=== PATIENT | male | born 1940 | race Caucasian/White ===

== ENCOUNTER 2016-11-30 09:52 | Day surgery (SDC) | payer MEDICARE, OTHER ==
[2016-11-30] MEDS ORDERED: CYCLOPENTOLATE 1% OPHTH DROPS 2 ML OPTH ONE (10:09)
[2016-11-30] MEDS ORDERED: LACTATED RINGERS 500 ML IV ONE (10:09)
[2016-11-30] MEDS ORDERED: TROPICAMIDE 1% OPHTH 2 ML DROPS OPTH ONE (10:09)
[2016-11-30] MEDS ORDERED: KETOROLAC 0.45% OPHTH DROPS OPTH ONE (10:09)
[2016-11-30] MEDS ORDERED: MIDAZOLAM 2 MG/2 ML VIAL IVP ONE (10:30)
[2016-11-30] MEDS ORDERED: LIDOCAINE-MPF 2% 5 ML VIAL IM ONE (10:30)
[2016-11-30] MEDS ORDERED: PROPARACAINE 0.5% OPHTH DROPS 15 ML OPTH ONE (10:42)
[2016-11-30] MEDS ORDERED: BRIMONIDINE 0.2% OPHTH DROPS 5 ML OPTH ONE (10:42)
[2016-11-30] MEDS ORDERED: CHONDR SULF/HYALURONATE SYRINGE IO ONE (10:42)
[2016-11-30] MEDS ORDERED: EPINEPHrine 1 MG/ML AMP IO ONE (10:42)
[2016-11-30] MEDS ORDERED: levoFLOXacin 0.5% OPHTH DROPS 5 ML OPTH ONE (10:42)
[2016-11-30] MEDS ORDERED: BSS/LIDOCAINE/EPINEPHRINE 1 ML SYRINGE IO ONE (10:42)
[2016-11-30] MEDS ORDERED: TETRACAINE 0.5% OPHTH DROPS 4 ML OPTH ONE (10:42)
== END 2016-11-30 09:53 | disposition home or self-care (01) ==
PROC: 08RK3JZ Replacement of Left Lens with Synthetic Substitute, Percutaneous Approach (ICD-10-PCS; principal; 2016-11-30 10:45)
DX: H25.12 Age-related nuclear cataract, left eye (principal); Z87.891 Personal history of nicotine dependence; I10 Essential (primary) hypertension; H40.9 Unspecified glaucoma
CPT/HCPCS: 66982; V2632; V2787

== ENCOUNTER 2016-12-14 08:17 | Day surgery (SDC) | payer MEDICARE, OTHER ==
[2016-12-14] MEDS ORDERED: LACTATED RINGERS 500 ML IV ONE (08:39)
[2016-12-14] MEDS ORDERED: KETOROLAC 0.45% OPHTH DROPS OPTH ONE (08:40)
[2016-12-14] MEDS ORDERED: TROPICAMIDE 1% OPHTH 2 ML DROPS OPTH ONE (08:40)
[2016-12-14] MEDS ORDERED: CYCLOPENTOLATE 1% OPHTH DROPS 2 ML OPTH ONE (08:40)
[2016-12-14] MEDS ORDERED: LIDOCAINE-MPF 2% 5 ML VIAL IM ONE (10:15)
[2016-12-14] MEDS ORDERED: PROPOFOL 200 MG/20 ML VIAL IVP ONE (10:15)
[2016-12-14] MEDS ORDERED: MIDAZOLAM 2 MG/2 ML VIAL IVP ONE (10:15)
[2016-12-14] MEDS ORDERED: EPINEPHrine 1 MG/ML AMP IO ONE (10:16)
[2016-12-14] MEDS ORDERED: PROPARACAINE 0.5% OPHTH DROPS 15 ML OPTH ONE (10:16)
[2016-12-14] MEDS ORDERED: BRIMONIDINE 0.2% OPHTH DROPS 5 ML OPTH ONE (10:16)
[2016-12-14] MEDS ORDERED: TETRACAINE 0.5% OPHTH DROPS 4 ML OPTH ONE (10:17)
[2016-12-14] MEDS ORDERED: CHONDR SULF/HYALURONATE SYRINGE IO ONE (10:17)
[2016-12-14] MEDS ORDERED: BSS/LIDOCAINE/EPINEPHRINE 1 ML SYRINGE IO ONE (10:17)
== END 2016-12-14 08:18 | disposition home or self-care (01) ==
PROC: 08RJ3JZ Replacement of Right Lens with Synthetic Substitute, Percutaneous Approach (ICD-10-PCS; principal; 2016-12-14 09:15)
DX: H25.11 Age-related nuclear cataract, right eye (principal); I10 Essential (primary) hypertension; Z87.891 Personal history of nicotine dependence
CPT/HCPCS: 66984; V2632; V2787

== ENCOUNTER 2017-01-05 20:19 | Outpatient (CLI) | payer MEDICARE, OTHER | END 2017-01-05 20:20 | disposition home or self-care (01) | DX: J20.9 Acute bronchitis, unspecified (principal); R06.2 Wheezing ==

== ENCOUNTER 2017-01-05 23:37 | Emergency (ER) | payer MEDICARE, OTHER ==
[2017-01-06] MEDS ORDERED: SODIUM CHLORIDE 0.9% 500 ML IV ONE (00:31)
[2017-01-06] MEDS ORDERED: SODIUM CHLORIDE 0.9% 1,000 ML IV ONE (00:31)
== END 2017-01-06 01:53 | disposition home or self-care (01) ==
DX: J18.9 Pneumonia, unspecified organism (principal); E87.1 Hypo-osmolality and hyponatremia; I10 Essential (primary) hypertension; Z79.82 Long term (current) use of aspirin; Z87.891 Personal history of nicotine dependence

== ENCOUNTER 2017-05-28 17:13 | Emergency (ER) | payer MEDICARE, OTHER ==
--- NOTE | 2017-05-28 18:10 | XRAY Preliminary Report ---
Exam: XR Chest 2 View PA/LAT IMPRESSION: Cardiomegaly. Clear lungs. [facility] SITE ID: [id number]
--- NOTE | 2017-05-28 18:13 | XRAY Report ---
EXAM: CHEST RADIOGRAPHY EXAM DATE: 05/28/2017 05:59 PM. CLINICAL HISTORY: Productive cough, r/o pneumonia. COMPARISON: 01/05/2017. TECHNIQUE: 2 views. FINDINGS: Lungs/Pleura: No focal opacities evident. No pleural effusion. No pneumothorax. Normal volumes. Mediastinum: There is cardiomegaly. No edema or pneumothorax. Other: None. IMPRESSION: Cardiomegaly. Clear lungs. [facility] Referring Provider Line: [phone] SITE ID: [id number]
--- NOTE | 2017-05-28 18:14 | ED Physician Documentation ---
PD HPI URI - Stated complaint Stated Complaint: COUGH/PHLEGM/SOA - Chief complaint Chief Complaint: Resp - History obtained from History obtained from: Patient - History of Present Illness Timing - onset: How many days ago (several) Timing duration: Days Timing details: Abrupt onset, Still present Associated symptoms: Fever, Chills, Productive cough, Dyspnea. No: Sore throat , Hemoptysis, NVD, Bilateral edema Contributing factors: No: Sick contact, Travel, Immunocompromised Improves by: Rest Worsened by: Activity Similar symptoms before: Diagnosis (pneumonia in recent past (few months ago) and had some mild cough persist awhile.) Review of Systems Constitutional: reports: Fever, Chills, Myalgias, Fatigue Nose: reports: Congestion Throat: denies: Sore throat Cardiac: denies: Chest pain / pressure, Palpitations Respiratory: reports: Dyspnea, Cough. denies: Wheezing GI: denies: Nausea, Vomiting, Diarrhea Musculoskeletal: denies: Extremity swelling PD PAST MEDICAL HISTORY - Past Medical History Cardiovascular: Hypertension, Other Respiratory: None Neuro: None Endocrine/Autoimmune: None GI: Hemorrhoids : None HEENT: Glaucoma Psych: None Musculoskeletal: None Derm: None - Past Surgical History Past Surgical History: Yes General: Cholecystectomy HEENT: Tonsil/Adenoidectomy - Present Medications Home Medications: Ambulatory Orders Medication Instructions Recorded Confirmed Lisinopril/Hydrochlorothiazide 5 mg PO DAILY 05/21/13 05/28/17 [Lisinopril-Hctz 10-12.5 mg Tab] Aspirin 81 mg PO DAILY PM 10/29/13 05/28/17 Latanoprost 0.005% Ophth Drops 1 drop EACHEYE DAILY PM 07/25/16 05/28/17 [Xalatan Ophth Drops] Timolol [Betimol] 1 drop EACHEYE BID 07/25/16 05/28/17 Albuterol Sulf [Ventolin Hfa 1 - 2 puffs INH Q4HR PRN #1 inhaler 05/28/17 Inhaler] Benzonatate [Tessalon] 100 mg PO TID PRN #25 capsule 05/28/17 Dexamethasone [Decadron] 4 mg PO DAILY #5 tablet 05/28/17 Doxycycline Hyclate 100 mg PO BID #14 tablet 05/28/17 - Allergies Allergies/Adverse Reactions: Allergies Allergy/AdvReac Type Severity Reaction Status Date / Time cephalexin monohydrate * Allergy Intermediate Rash Verified 05/21/13 23:11 [From Keflex] levofloxacin [From Levaquin] Allergy Intermediate Rash Verified 05/21/13 23:11 - Social History Does the pt smoke?: No Smoking Status: Former smoker Does the pt drink ETOH?: No Does the pt have substance abuse?: No - Immunizations Immunizations are current?: Yes - POLST Patient has POLST: No PD ED PE NORMAL - Vitals Vital signs reviewed: Yes - General General: Alert and oriented X 3, No acute distress, Well developed/nourished - HEENT HEENT: PERRL, Ears normal, Moist mucous membranes, Pharynx benign - Neck Neck: Supple, no meningeal sign, No adenopathy - Cardiac Cardiac: RRR, No murmur - Respiratory Respiratory: No: Clear bilaterally (scattered wheezing and decreased sounds on the right. ) - Abdomen Abdomen: Soft, Non tender - Derm Derm: Normal color, Warm and dry - Extremities Extremities: Normal ROM s pain, No edema, No calf tenderness / cord - Neuro Neuro: Alert and oriented X 3, No motor deficit, Normal speech Results - Vitals Vitals: Oxygen O2 Source Room air - Rads (name of study) chest Radiology: Prelim report reviewed, EMP read contemporaneously (no infiltrates nor acute process) PD MEDICAL DECISION MAKING - ED course Complexity details: considered differential (seems bronchial, but with duration of symptoms, will treat as potential bacterial as well. ), d/w patient Departure - Departure Disposition: 01 Home, Self Care Clinical Impression: Upper respiratory infection Qualifiers: URI type: unspecified URI Qualified Code(s): J06.9 - Acute upper respiratory infection, unspecified Condition: Stable Record reviewed to determine appropriate education?: Yes Instructions: ED Upper Resp Infec Abx Tx Follow-Up: Misael Barth MD [Primary Care Provider] - Prescriptions: Albuterol Sulf [Ventolin Hfa Inhaler] 1 - 2 puffs INH Q4HR PRN #1 inhaler PRN Reason: Shortness Of Air/Wheezing Dexamethasone [Decadron] 4 mg PO DAILY #5 tablet Doxycycline Hyclate 100 mg PO BID #14 tablet Benzonatate [Tessalon] 100 mg PO TID PRN #25 capsule PRN Reason: Cough Comments: Drink lots of fluids and regular medications. Use the albuterol inhaler 2 puffs 4 times a day and added times every 2 hours if needed for wheezing and cough. Tessalon medication as needed for cough. Decadron daily for 5 more days for the inflammation of the bronchioles. This may be viral but cannot say it is not bacterial and so we will treat with antibiotic doxycycline twice a day for a week. Recheck if not improving over the next few days and return sooner if worse. Discharge Date/Time: 05/28/17 19:34
[2017-05-28] MEDS ORDERED: ALBUTEROL NEB 2.5 MG/3 ML INH STA (18:27)
[2017-05-28] MEDS ORDERED: BENZONATATE 100 MG CAPSULE PO STA (18:28)
[2017-05-28] MEDS ORDERED: DEXAMETHASONE 10 MG/ML VIAL PO STA (18:28)
[2017-05-28] MEDS ORDERED: DOXYCYCLINE 100 MG TABLET PO STA (18:28)
[2017-05-28] MEDS ORDERED: ALBUTEROL NEB 2.5 MG/3 ML INH ONE (19:03)
[2017-05-28] MEDS ORDERED: DOXYCYCLINE 100 MG TABLET PO ONE (19:19)
[2017-05-28] MEDS ORDERED: DEXAMETHASONE 10 MG/ML VIAL ONE (19:19)
[2017-05-28] MEDS ORDERED: BENZONATATE 100 MG CAPSULE PO ONE (19:19)
[2017-05-28] MEDS ORDERED: CHERRY SYRUP 10 ML UDC PO ONE (19:20)
[2017-05-28 19:28] VITALS: BP 178/91
== END 2017-05-28 19:34 | disposition home or self-care (01) ==
LOC: ED 17:13
DX: J06.9 Acute upper respiratory infection, unspecified (principal); I10 Essential (primary) hypertension; Z87.891 Personal history of nicotine dependence; Z79.82 Long term (current) use of aspirin
CPT/HCPCS: 71020; 94640; 99283; A9270; J7613

== ENCOUNTER 2017-06-07 10:58 | Outpatient (CLI) | payer MEDICARE, OTHER ==
[2017-06-07 17:33] LABS: BASOPHILS % (AUTO) 0.8 %; EOSINOPHILS # (AUTO) 0.2 10^3/uL (0.0-0.7); EOSINOPHILS % (AUTO) 3.1 %; HCT - HEMATOCRIT 42.9 % (42.0-52.0); HGB - HEMOGLOBIN 14.5 g/dL (14.0-18.0); LYMPHOCYTES # (AUTO) 1.7 10^3/uL (1.5-3.5); MEAN CORPUSCULAR HEMOGLOBIN 30.2 pg (27.0-31.0); MEAN CORPUSCULAR HGB CONC 33.8 g/dL (32.0-36.0); MEAN CORPUSCULAR VOLUME 89.3 fL (80.0-94.0); MEAN PLATELET VOLUME 7.2 fL (7.4-11.4); MONOCYTES # (AUTO) 0.5 10^3/uL (0.0-1.0); MONOCYTES % (AUTO) 9.2 %; NEUTROPHILS # (AUTO) 3.5 10^3/uL (1.5-6.6); NEUTROPHILS % (AUTO) 58.9 %; RED CELL DISTRIBUTION WIDTH 13.9 % (12.0-15.0)
[2017-06-07 17:57] LABS: ALBUMIN/GLOBULIN RATIO 1.6 (1.0-2.2); BUN - BLOOD UREA NITROGEN 11 mg/dL (6-20); CARBON DIOXIDE - CO2 29 mmol/L (21-32); CHLORIDE 96 mmol/L (101-111); CHOL/HDL RATIO 2.3 (<5.0); CHOLESTEROL 147 mg/dL; CREATININE 0.8 mg/dL (0.6-1.2); GFR - MDRD 94 (>89); GLUCOSE 98 mg/dL (70-100); HDL CHOLESTEROL 63 mg/dL; POTASSIUM 4.2 mmol/L (3.5-5.0); SODIUM 131 mmol/L (135-145); TOTAL PROTEIN 6.3 g/dL (6.7-8.2); TRIGLYCERIDES 31 mg/dL
[2017-06-07 18:16] LABS: LDL CHOLESTEROL,DIRECT 70 mg/dL
[2017-06-07 18:27] LABS: PLATELET ESTIMATE, MANUAL NORMAL (130-450,000) (NORMAL); PLATELET MORPHOLOGY NORMAL APPEARANCE (NORMAL)
== END 2017-06-07 10:59 | disposition home or self-care (01) ==
LOC: LAB.F 10:58
PROVIDERS: ATTEND Physician Assistant
DX: I10 Essential (primary) hypertension (principal); R53.83 Other fatigue
CPT/HCPCS: 36415; 80053; 80061; 83880; 85025

== ENCOUNTER 2017-06-09 13:49 | Outpatient (CLI) | payer MEDICARE, OTHER | END 2017-06-09 13:50 | disposition home or self-care (01) | LOC: DI 13:49 | PROVIDERS: ATTEND Physician Assistant | DX: I11.0 Hypertensive heart disease with heart failure (principal); I50.9 Heart failure, unspecified; I34.0 Nonrheumatic mitral (valve) insufficiency; I35.1 Nonrheumatic aortic (valve) insufficiency; I07.1 Rheumatic tricuspid insufficiency | CPT/HCPCS: 93306 ==

== ENCOUNTER 2017-08-29 15:54 | Outpatient (CLI) | payer MEDICARE, OTHER | END 2017-08-29 15:55 | disposition home or self-care (01) | LOC: RT 15:54 | PROVIDERS: ATTEND Nurse Anesthetist, Certified Registered | DX: Z01.810 Encounter for preprocedural cardiovascular examination (principal) | CPT/HCPCS: 93005 ==

== ENCOUNTER 2017-09-05 09:34 | Day surgery (SDC) | payer MEDICARE, OTHER ==
[2017-09-05] MEDS ORDERED: LACTATED RINGERS 1,000 ML IV ONE ×2 (09:46→14:40)
[2017-09-05] MEDS ORDERED: ceFAZolin 2 GM/50 ML 2 GM/50 ML BAG IV ONE (09:46)
[2017-09-05] MEDS ORDERED: BUPIVACAINE 0.5% PF 30 ML VIAL INFIL ONE ×3 (11:13→12:26)
[2017-09-05] MEDS ORDERED: ONDANSETRON 4 MG/2 ML VIAL IVP ONE (11:45)
[2017-09-05] MEDS ORDERED: PROPOFOL 200 MG/20 ML VIAL IVP ONE (11:45)
[2017-09-05] MEDS ORDERED: LIDOCAINE-MPF 2% 5 ML VIAL IM ONE (11:45)
[2017-09-05] MEDS ORDERED: DEXAMETHASONE 4 MG/ML VIAL IVP ONE (11:45)
[2017-09-05] MEDS ORDERED: GLYCOPYRROLATE 1 MG/5 ML VIAL IVP ONE (11:45)
[2017-09-05] MEDS ORDERED: fentaNYL 100 MCG/2 ML VIAL IVP ONE (11:45)
--- NOTE | 2017-09-05 12:53 | OPERATIVE REPORT ---
Operative Report - General Procedure Date: 09/05/17 Planned Procedure: LEFT inguinal hernia Pre-Op Diagnosis: LEFT inguinal hernia Procedure Performed: LEFt indirect inguinal herniorrhaphy with mesh Post Op Diagnosis: LEFT indirect inguinal herniorrhaphy with slight weakness of the floor - Procedure Note Primary Surgeon: Rasta Lopez MD Anesthesia Provider: Neymar Ventura and Rasta Lisa MD Anesthesia Technique: General LMA, Local (30 mL 1/2% marcaine) IV Fluids (mL): 400 Estimated Blood Loss (mL): 5 Complications: None. - Other Other Information/Narrative: OPERATIVE DESCRIPTION/REPORT: After verbal and written informed consent was obtained detailing the risks of infection, bleeding requiring transfusion with its risks, nerve injury, and , and after I met with the patient confirming the surgery and the site of the surgery and after initialing the site of the surgery with a surgical marker , the patient was brought to the operative suite and placed supine on the operating table. Great care was taken to avoid pressure points to prevent pressure necrosis or nerve injury. Monitoring devices were applied along with TEDs and pneumatic compressive stockings (to prevent DVT). The patient received preoperative antibiotics for surgical prophylaxis. Neymar Ventura initially sedated and anesthetized the patient and then Dr. Rasta Lisa was present for the remaining procedure. The patient was prepped and draped in the usual sterile manner. With the patient draped my initials were clearly visible. A "time in" then confirmed that the patient was identified with 3 identifiers ( name, date and medical record number), the history and physical was in the chart, the signed consent confirming the procedure was in the chart, the patient was in the correct position, the aforementioned prophylactic measures were in place or given, we had the correct personnel and equipment to complete the procedure and that anesthesia, surgery and nursing were given an opportunity to express any concerns. With the agreement of everyone in the room , we proceeded with the operation. A standard inguinal incision was made and dissection was carried down to the external oblique aponeurosis using a combination of Metzenbaum scissors and Bovie electrocautery. The external oblique aponeurosis was cleared of overlying adherent tissue, and the external ring was delineated. The external oblique was the incised with a scalpel and this incision was carried out to the external ring using Metzenbaum scissors. Having exposed the inguinal canal, the cord structures were from the canal using blunt dissection, and a Mirta drain was placed around the cord structures at the level of the pubic tubercle. This Benton drain was then used to retract the cord structures as needed. Adherent cremasteric muscle was dissected free from the cord using Bovie electrocautery. The cord was then explored using a combination of sharp and blunt dissection , and the sac was found anteromedially to the cord structures. The sac was dissected free from the cord structures using a combination of blunt dissection and Bovie electrocautery. Once preperitoneal fat was encountered, the dissection stopped and the sac was high ligated with a 2-0 PDS, transected, the stump cauterized and allowed to retract back into the abdominal cavity and a large Bard Perfix plug (Ref# [id number], Lot# [id number], use date 2022-03-05) inserted into the internal ring. The plug was secured to the internal ring by interrupted 2-0 PDS sutures. The floor was relatively weak. The Bard Perfix enlay patch was then placed on the floor of the inguinal canal and secured in place using interrupted 0 PDS sutures to the conjoined tendon superiorly, pubic tubercle medially, and shelving edge inferiorly. By reinforcing the floor with the enlay patch, a new internal ring was thus formed. The Benton drain was removed. The wound was then irrigated using sterile saline, and hemostasis was obtained using Bovie electrocautery. The incision in the external oblique was approximated using a 3-0 Vicryl in a running fashion , thus reforming the external ring. The fascia and skin was then injected with the 1/2% marcaine for shelter pain control. The skin incision was approximated with 4-0 Monocryl in a subcuticular fashion. The skin was prepped with benzoin and steristrips were applied. At this point a time out was performed that confirmed that all the counts were correct, the procedure that was performed, the blood loss, the IV fluids administered, and the patients condition. A dressing was then applied. Gentle downward traction ensured that the testes were well seated in the scrotum. Having tolerated the procedure well , the patient was taken to short stay in good and stable condition.
[2017-09-05] MEDS ORDERED: fentaNYL 100 MCG/2 ML VIAL ONE (12:57)
[2017-09-05] MEDS ORDERED: HYDROmorphone 1 MG/ML SYRINGE ONE (13:27)
[2017-09-05] MEDS ORDERED: HYDROcod/ACETAM 5/325 MG TABLET ONE (14:32)
[2017-09-05 17:38] VITALS: BP 128/72
== END 2017-09-05 09:35 | disposition home or self-care (01) ==
LOC: SDS 09:34
PROVIDERS: ATTEND Surgery
PROC: 0YU60JZ Supplement Left Inguinal Region with Synthetic Substitute, Open Approach (ICD-10-PCS; principal; 2017-09-05 10:30)
DX: K40.90 Unilateral inguinal hernia, without obstruction or gangrene, not specified as recurrent (principal); I10 Essential (primary) hypertension
CPT/HCPCS: 49505; A9270; C1781; J0690; J1170; J7120

== ENCOUNTER 2018-05-03 15:40 | Outpatient (CLI) | payer MEDICARE, OTHER ==
--- NOTE | 2018-05-04 16:19 | XRAY Report ---
Procedure Date: 05/03/2018 Accession Number: [id number] / [id number] Procedure: XR - Chest 2 View X-Ray CPT Code: 63424 FULL RESULT: EXAM: Chest 2 View X-Ray DATE: 05/03/2018 4:03 PM CLINICAL HISTORY: WIN,OTHER FORMS OF DYSPNEA COMPARISON: 09/08/2017. TECHNIQUE: 2 views. FINDINGS: Lungs/Pleura: No focal opacities evident. No pneumothorax or pleural effusion. Normal volumes. Mediastinum: There is enlargement of the cardiac silhouette. Comparison is difficult due to the prior radiograph being and AP technique, however this is likely relatively stable. Other: None. IMPRESSION: Stable cardiomegaly without acute cardiopulmonary findings. Correlate to a history of heart failure. [facility]
== END 2018-05-03 15:41 | disposition home or self-care (01) ==
LOC: DI 15:40
PROVIDERS: ATTEND Internal Medicine
DX: R06.00 Dyspnea, unspecified (principal); R06.09 Other forms of dyspnea
CPT/HCPCS: 71046

== ENCOUNTER 2018-05-20 14:06 | Outpatient (CLI) | payer MEDICARE, OTHER | END 2018-05-20 14:07 | disposition home or self-care (01) | LOC: DI 14:06 | PROVIDERS: ATTEND Internal Medicine | DX: R06.09 Other forms of dyspnea (principal); I35.8 Other nonrheumatic aortic valve disorders | CPT/HCPCS: 93306 ==

== ENCOUNTER 2019-06-28 15:44 | Outpatient (CLI) | payer MEDICARE, OTHER ==
--- NOTE | 2019-06-28 19:16 | XRAY Report ---
Reason: HEMOPTYSIS Procedure Date: 06/28/2019 Accession Number: [id number] / [id number] Procedure: XR - Chest 2 View X-Ray CPT Code: 44022 FULL RESULT: EXAM: CHEST RADIOGRAPHY EXAM DATE: 06/28/2019 04:48 PM HISTORY: HEMOPTYSIS COMPARISON: CHEST 2 VIEW 05/03/2018 3:56 PM TECHNIQUE: Two Views FINDINGS: Lungs/Pleura: No segmental infiltrate identified. Positive for patchy and nodular central and basilar pulmonary opacity. Consider atypical/viral pneumonia, interstitial pneumonitis and vascular congestion. Other etiologies not excluded. No pleural effusion. Cardiomediastinal silhouette: Mild to moderate cardiomegaly. Other: None. IMPRESSION: Positive for nonspecific central and basilar patchy and curvilinear opacities as discussed above. Cardiomegaly as before. [facility]
== END 2019-06-28 15:45 | disposition home or self-care (01) ==
LOC: DI 15:44
PROVIDERS: ATTEND Nurse Practitioner Family
DX: R91.8 Other nonspecific abnormal finding of lung field (principal); I51.7 Cardiomegaly
CPT/HCPCS: 71046

== ENCOUNTER 2019-08-09 14:35 | Outpatient (CLI) | payer MEDICARE, OTHER ==
--- NOTE | 2019-08-10 15:46 | XRAY Report ---
Reason: HEMOPTYSIS Procedure Date: 08/09/2019 Accession Number: [id number] / [id number] Procedure: XR - Chest 2 View X-Ray CPT Code: 03786 Final Report FULL RESULT: EXAM: CHEST RADIOGRAPHY EXAM DATE: 08/09/2019 02:53 PM. CLINICAL HISTORY: HEMOPTYSIS. COMPARISON: CHEST 2 VIEW 06/28/2019 4:41 PM CHEST 2 VIEW 05/03/2018 3:56 PM CHEST 2 VIEW PA/LAT 05/28/2017 5:46 PM. TECHNIQUE: 2 views. FINDINGS: Lungs/Pleura: No focal opacities evident. No pleural effusion. No pneumothorax. Normal volumes. Mediastinum: Stable cardiomegaly. Other: None. IMPRESSION: No focal opacification in the lungs. Stable cardiomegaly. [facility]
== END 2019-08-09 14:36 | disposition home or self-care (01) ==
LOC: DI 14:35
PROVIDERS: ATTEND Nurse Practitioner Family
DX: R04.2 Hemoptysis (principal); I51.7 Cardiomegaly
CPT/HCPCS: 71046

== ENCOUNTER 2020-04-06 11:50 | Emergency (ER) | payer MEDICARE, OTHER ==
[2020-04-06 12:21] LABS: BASOPHILS % (AUTO) 0.6 %; EOSINOPHILS # (AUTO) 0.1 10^3/uL (0.0-0.7); EOSINOPHILS % (AUTO) 0.8 %; HGB - HEMOGLOBIN 12.9 g/dL (14.0-18.0); LYMPHOCYTES # (AUTO) 1.1 10^3/uL (1.5-3.5); LYMPHOCYTES % (AUTO) 16.5 %; MEAN CORPUSCULAR HEMOGLOBIN 30.1 pg (27.0-31.0); MEAN CORPUSCULAR HGB CONC 33.2 g/dL (32.0-36.0); MEAN CORPUSCULAR VOLUME 90.4 fL (80.0-94.0); MEAN PLATELET VOLUME 9.3 fL (7.4-11.4); MONOCYTES # (AUTO) 0.5 10^3/uL (0.0-1.0); MONOCYTES % (AUTO) 8.4 %; NEUTROPHILS # (AUTO) 4.7 10^3/uL (1.5-6.6); NEUTROPHILS % (AUTO) 73.2 %; PLT - PLATELET COUNT 176 10^3/uL (130-450); RED BLOOD COUNT 4.29 10^6/uL (4.70-6.10); RED CELL DISTRIBUTION WIDTH 14.2 % (12.0-15.0); WHITE BLOOD COUNT 6.4 x10^3/uL (4.8-10.8)
--- NOTE | 2020-04-06 12:26 | XRAY Report ---
PROCEDURE: Chest 1 View X-Ray INDICATIONS: Chest pain TECHNIQUE: One view of the chest was acquired. COMPARISON: CXR 08/09/2019. FINDINGS: Surgical changes and devices: Cholecystectomy clips. Lungs and pleura: Blunting of the left costophrenic angle. No pneumothorax. Airspace opacity at the l eft lung base silhouetting the hemidiaphragm. Mild streaky opacities bilaterally. Mediastinum: Mediastinal contours appear unchanged. Heart size is prominent. Bones and chest wall: No suspicious bony lesions. Overlying soft tissues appear unremarkable. IMPRESSION: Airspace opacity at the left lung base. Primary diagnostic considerations include pneumonia or left pleural effusion with adjacent compressiv e atelectasis. Bibasal atelectasis. Reviewed by: Simon Rosa MD on 04/06/2020 12:25 PM PDT Approved by: Simon Rosa MD on 04/06/2020 12:25 PM PDT Station ID: [id number]
[2020-04-06 12:31] LABS: ALBUMIN 4.4 g/dL (3.2-5.5); ALBUMIN/GLOBULIN RATIO 1.8 (1.0-2.2); BILIRUBIN,TOTAL 1.3 mg/dL (0.2-1.0); CREATININE 0.9 mg/dL (0.6-1.2); TOTAL PROTEIN 6.9 g/dL (6.7-8.2)
--- NOTE | 2020-04-06 12:47 | ED Physician Documentation ---
PD HPI DYSPNEA - Stated complaint Stated Complaint: SOA - Chief complaint Chief Complaint: Cardiac - History obtained from History obtained from: Patient (79-year-old gentleman with history of paroxysmal atrial fibrillation and may be CHF per his description presents with 2 weeks of progressive shortness of breath, specifically with exertion. He has a mild cough with it in the morning. Mild pedal edema. No fevers. There is no chest pain.) Review of Systems Ten Systems: 10 systems reviewed and negative Constitutional: reports: Fatigue. denies: Fever, Chills Cardiac: reports: Pedal edema. denies: Chest pain / pressure, Palpitations, Calf pain Respiratory: reports: Dyspnea GI: denies: Abdominal Pain PD PAST MEDICAL HISTORY - Past Medical History Past Medical History: Yes Cardiovascular: Hypertension, Other Respiratory: None Endocrine/Autoimmune: None GI: Hemorrhoids : None HEENT: Glaucoma Psych: None Musculoskeletal: None Derm: None - Past Surgical History Past Surgical History: Yes General: Cholecystectomy, Other HEENT: Tonsil/Adenoidectomy - Present Medications Home Medications: Ambulatory Orders Medication Instructions Recorded Confirmed Aspirin 81 mg PO DAILY PM 10/29/13 09/09/17 Timolol [Betimol] 1 drop EACHEYE BID 07/25/16 09/09/17 Ascorbic Acid [Vitamin C] 1,000 mg PO DAILY 08/29/17 09/09/17 Cholecalciferol (Vitamin D3) 4,000 unit PO DAILY 08/29/17 09/09/17 [Vitamin D3] Green Tea [place] Extract [Green Tea 1 cap PO DAILY 08/29/17 09/09/17 Extract] Latanoprost 0.005% Ophth Drops 1 drops EACHEYE QPM 08/29/17 09/09/17 [Xalatan Ophth Drops] [place]-3S/Dha/Epa/Fish Oil [Fish 1 each PO DAILY 08/29/17 09/09/17 Oil [place]-3 Softgel] Furosemide [Lasix] 20 mg PO DAILY #10 tablet 09/10/17 HYDROcod/ACETAM 5/325 [[place] 5/325] 1 each PO Q6H PRN #15 tablet 09/10/17 Isosorbide Mononitrate ER [Imdur] 60 mg PO DAILY #10 tablet 09/10/17 Potassium Chloride [K-Dur] 10 meq PO DAILYWM #10 tablet 09/10/17 Tamsulosin [Flomax] 0.4 mg PO DAILY #10 capsule 09/10/17 Amoxicillin 1,000 mg PO TID #60 capsule 04/06/20 Apixaban [Eliquis] 5 mg PO BID #60 tablet 04/06/20 Furosemide [Lasix] 40 mg PO DAILY #30 tablet 04/06/20 - Allergies Allergies/Adverse Reactions: Allergies Allergy/AdvReac Type Severity Reaction Status Date / Time cephalexin monohydrate * Allergy Intermediate Hallucinati Verified 09/08/17 17:09 [From Keflex] ons levofloxacin [From Levaquin] Allergy Intermediate Rash Verified 09/08/17 17:09 codeine Allergy Edema with Verified 09/08/17 17:09 SOA guaifenesin Allergy Edema with Verified 09/08/17 17:09 [From Guaiatussin AC] SOA - Social History Does the pt smoke?: No Smoking Status: Never smoker Does the pt drink ETOH?: No Does the pt have substance abuse?: No - Immunizations Immunizations are current?: Yes - POLST Patient has POLST: No PD ED PE NORMAL - Vitals Vital signs reviewed: Yes - General General: Alert and oriented X 3, No acute distress - HEENT HEENT: PERRL, EOMI - Neck Neck: Supple, no meningeal sign, No bony TTP - Cardiac Cardiac: Other (Irregularly irregular without murmur) - Respiratory Respiratory: Other (Rhonchorous at the left base, nonlabored) - Abdomen Abdomen: Non tender - Back Back: No CVA TTP, No spinal TTP - Derm Derm: Normal color, Warm and dry - Extremities Extremities: Other (Trace bilateral pitting pedal edema without calf tenderness) - Neuro Neuro: Alert and oriented X 3, Normal speech Results - Vitals Vitals: Vital Signs - 24 hr 04/06/20 04/06/20 04/06/20 11:54 12:35 13:00 Temperature 36.4 C L 36.4 C L Heart Rate 53 L 53 L 40 L Respiratory 18 18 12 Rate Blood Pressure 198/89 H 198/89 H 140/80 H O2 Saturation 97 97 93 04/06/20 04/06/20 04/06/20 13:30 14:02 14:30 Temperature Heart Rate 44 L 45 L 42 L Respiratory 14 18 14 Rate Blood Pressure 157/88 H 157/88 H 156/81 H O2 Saturation 96 93 94 Oxygen O2 Source Room air - EKG (time done) 1202 Rate: Rate (enter#) (55) Rhythm: Atrial fibrillation Intervals: LBBB Computer interpretation: Agree with computer - Labs Labs: Laboratory Tests 04/06/20 04/06/20 04/06/20 12:10 12:10 12:10 WBC 6.4 RBC 4.29 L Hgb 12.9 L Hct 38.8 L MCV 90.4 MCH 30.1 MCHC 33.2 RDW 14.2 Plt Count 176 MPV 9.3 Neut # (Auto) 4.7 Lymph # (Auto) 1.1 L [place] # (Auto) 0.5 Eos # (Auto) 0.1 Baso # (Auto) 0.0 Absolute Nucleated RBC 0.00 Nucleated RBC % 0.0 Sodium 132 L Potassium 4.0 Chloride 96 L Carbon Dioxide 26 Anion Gap 10.0 BUN 15 Creatinine 0.9 Estimated GFR (MDRD) 81 L Glucose 116 H Calcium 9.0 Total Bilirubin 1.3 H AST 31 ALT 24 Alkaline Phosphatase 82 Troponin I High Sens 24.3 H* B-Natriuretic Peptide Total Protein 6.9 Albumin 4.4 Globulin 2.5 Albumin/Globulin Ratio 1.8 Lipase 28 04/06/20 12:10 WBC RBC Hgb Hct MCV MCH MCHC RDW Plt Count MPV Neut # (Auto) Lymph # (Auto) [place] # (Auto) Eos # (Auto) Baso # (Auto) Absolute Nucleated RBC Nucleated RBC % Sodium Potassium Chloride Carbon Dioxide Anion Gap BUN Creatinine Estimated GFR (MDRD) Glucose Calcium Total Bilirubin AST ALT Alkaline Phosphatase Troponin I High Sens B-Natriuretic Peptide 833 H Total Protein Albumin Globulin Albumin/Globulin Ratio Lipase PD MEDICAL DECISION MAKING - ED course Complexity details: reviewed old records (Previous echo from May 2018 reviewed. Showed mild LVH. Normal EF at 60 to 65%. Severe increase in left atrial volume. Severe right atrial enlargement. Mild to moderate aortic regurgitation. Mild mitral regurgitation. Patent foramen ovale with left to right shunting.) ED course: 79-year-old gentleman with exertional shortness of breath, mild cough. X-ray could be consistent with a left pleural effusion from CHF or pneumonia, further information gleaned from CT, but the differential diagnosis stays the same, although looking more like pneumonia. He is in A. fib which he has had paroxysmally in the past but it is been fairly constant throughout his stay on the monitor, at times he is fairly bradycardic into the high 30s. He was not familiar with the term heart failure but he is already on Lasix, 20 mg a day. 79-year-old gentleman presents with exertional shortness of breath, labs are more suggestive of CHF but imaging concerning for pneumonia. He is not in extremis., Case discussed by phone with Dr. Lee Landa, on-call for his medical scribe in [place]. Recommends anticoagulation with Eliquis and doubling his Lasix to 40 mg a day and some antibiotics for potential pneumonia. He should follow-up with his medical scribe for echo and Holter. Departure - Departure Disposition: 01 Home, Self Care Clinical Impression: Congestive heart failure Qualifiers: Heart failure type: unspecified Heart failure chronicity: acute on chronic Qualified Code(s): I50.9 - Heart failure, unspecified Pneumonia Qualifiers: Pneumonia type: due to unspecified organism Laterality: left Lung location: lower lobe of lung Qualified Code(s): J18.9 - Pneumonia, unspecified organism Condition: Stable Record reviewed to determine appropriate education?: Yes Instructions: Pneumonia Dc, ED CHF General Prescriptions: Amoxicillin 1,000 mg PO TID #60 capsule Apixaban [Eliquis] 5 mg PO BID #60 tablet Furosemide [Lasix] 40 mg PO DAILY #30 tablet Comments: Work-up today demonstrated a combination of a small pneumonia and an increase in congestive heart failure. I discussed the case by phone with Dr. Landa who is on-call for your medical scribe, Dr. Guillen. He recommended increasing the Lasix from 20 mg to 40 mg a day. Also starting you on a blood thinner which is prescribed and he recommended that you follow-up with Dr. Guillen, next available appointment for consideration for repeat echocardiogram, and Holter monitor to see how low your heart rate goes over a days time. Return anytime if worse.
--- NOTE | 2020-04-06 13:56 | CT Report ---
PROCEDURE: CHEST WO INDICATIONS: L pleural effusion, PNA vs CHF TECHNIQUE: Noncontrast 5 mm thick sections acquired from the pulmonary apices to the posterior costophrenic angl es. 7 mm thick coronal and sagittal MIP reformats were then acquired. For radiation dose reduction, the following was used: automated exposure control, adjustment of mA and/or kV according to patient size. COMPARISON: FINDINGS: Image quality: Suboptimal due to respiratory motion artifact.. Lungs and pleura: No acute consolidation. Small bilateral pleural effusions with adjacent atelectasi s. No pneumothorax. Central and peripheral airways are patent and normal in caliber. Diffuse peribro nchial cuffing suggestive of nonspecific bronchitis and/or reactive airways disease. Mediastinum: Heart size is enlarged. Coronary artery calcifications are noted. No pericardial effu emperatriz. No mediastinal adenopathy by size criteria. Thoracic aorta and central pulmonary arteries are normal in size. Esophagus is normal in caliber. No hiatal hernia. Bones and chest wall: No suspicious bony lesions. No vertebral body compression fractures. No axil coleman or supraclavicular adenopathy by size criteria. The thyroid is normal in size. Abdomen: Visualized upper abdominal solid organs and bowel loops appear normal in the absence of con trast. IMPRESSION: Small bilateral pleural effusions with adjacent atelectasis. Patchy left lower lobe opacities. Techni wade, early bronchopneumonia and/or aspiration cannot be excluded. Evaluation suboptimal due to resp iratory motion artifact. If there is persistent clinical diagnostic uncertainty, recommend short inte rval follow-up chest radiographs after treatment for further assessment. No definite pulmonary edema seen at this time. Diffuse peribronchial cuffing suggestive of nonspecific bronchitis and/or reactive airways disease. Reviewed by: Asaf Nix MD on 04/06/2020 1:55 PM PDT Approved by: Asaf Nix MD on 04/06/2020 1:55 PM PDT Station ID: [id number]
[2020-04-06] MEDS ORDERED: AMOXICILLIN 250 MG CAPSULE PO STA (14:35)
[2020-04-06 15:05] VITALS: BP 150/80
== END 2020-04-06 15:11 | disposition home or self-care (01) ==
LOC: ED 11:50
DX: I11.0 Hypertensive heart disease with heart failure (principal); I50.9 Heart failure, unspecified; J18.9 Pneumonia, unspecified organism; I48.0 Paroxysmal atrial fibrillation; I44.7 Left bundle-branch block, unspecified; Z79.82 Long term (current) use of aspirin
CPT/HCPCS: 36415; 71045; 71250; 80053; 83690; 83880; 84484; 85025; 93005; 99284; A9270

== ENCOUNTER 2020-05-29 13:44 | Outpatient (CLI) | payer MEDICARE, OTHER | END 2020-05-29 13:45 | disposition home or self-care (01) | LOC: DI 13:44 | PROVIDERS: ATTEND Internal Medicine Cardiovascular Disease | DX: I48.91 Unspecified atrial fibrillation (principal); I07.1 Rheumatic tricuspid insufficiency | CPT/HCPCS: 93306 ==

== ENCOUNTER 2020-08-08 19:19 | Emergency (ER) | payer MEDICARE, OTHER ==
--- NOTE | 2020-08-08 19:44 | ED Physician Documentation ---
PD HPI CHEST PAIN - Stated complaint Stated Complaint: CHEST TIGHT/SOA - Chief complaint Chief Complaint: Cardiac - History obtained from History obtained from: Patient - Additional information Additional information: This is a very pleasant 79-year-old gentleman who has a history of left bundle branch block, anemia, heart failure, hypertension, and at times low sodium. For the last 3 days he is felt malaise, a backache basically from the diaphragm up to the neck associated with exertional shortness of breath. He has had similar symptoms in the past, in fact mostly this year and has been seen several times. The first episode was in March, imaging was concerning for pneumonia, the telegraph service clerk recommended Eliquis and diuresis. He was also placed on antibiotics. Subsequently he was seen in May, similar symptoms. Diagnosed with heart failure. Had a similar episode about a month ago. He had an echo in May showing mild LVH, ejection fraction of 60 to 65%, severe left atrial enlargement, severe right atrial enlargement, mild to moderate aortic regurgitation, mild mitral regurgitation, and a patent foramen ovale versus ASD. He denies chest pain. No pedal edema. Although he was prescribed in a blood thinner, he has not started it. Review of Systems Ten Systems: 10 systems reviewed and negative Constitutional: reports: Fatigue. denies: Fever, Chills Cardiac: denies: Chest pain / pressure, Palpitations Respiratory: reports: Dyspnea, Cough (maybe v mild) GI: denies: Abdominal Pain PD PAST MEDICAL HISTORY - Past Medical History Past Medical History: Yes Cardiovascular: Congestive heart failure, Hypertension, Other Respiratory: None Endocrine/Autoimmune: None GI: Hemorrhoids : None HEENT: Glaucoma Psych: None Musculoskeletal: None Derm: None Other Past Medical History: Hypotension; Bradycardia - Past Surgical History Past Surgical History: Yes General: Cholecystectomy, Other HEENT: Tonsil/Adenoidectomy - Present Medications Home Medications: Ambulatory Orders Medication Instructions Recorded Confirmed Aspirin 81 mg PO DAILY PM 10/29/13 07/06/20 Ascorbic Acid [Vitamin C] 1,000 mg PO DAILY 08/29/17 09/09/17 Cholecalciferol (Vitamin D3) 4,000 unit PO DAILY 08/29/17 07/06/20 [Vitamin D3] Green Tea [place] Extract [Green Tea 1 cap PO DAILY 08/29/17 07/06/20 Extract] Latanoprost 0.005% Ophth Drops 1 drops EACHEYE QPM 08/29/17 07/06/20 [Xalatan Ophth Drops] [place]-3S/Dha/Epa/Fish Oil [Fish 1 each PO DAILY 08/29/17 07/06/20 Oil [place]-3 Softgel] Isosorbide Mononitrate ER [Imdur] 60 mg PO DAILY #10 tablet 09/10/17 07/06/20 Furosemide [Lasix] 40 mg PO DAILY #30 tablet 04/06/20 07/06/20 Losartan Potassium 25 mg PO DAILY 07/06/20 07/06/20 - Allergies Allergies/Adverse Reactions: Allergies Allergy/AdvReac Type Severity Reaction Status Date / Time cephalexin monohydrate * Allergy Intermediate Hallucinati Verified 08/08/20 19:30 [From Keflex] ons levofloxacin [From Levaquin] Allergy Intermediate Rash Verified 08/08/20 19:30 codeine Allergy Edema with Verified 08/08/20 19:30 SOA guaifenesin Allergy Edema with Verified 08/08/20 19:30 [From Guaiatussin AC] SOA - Social History Does the pt smoke?: No Smoking Status: Never smoker Does the pt drink ETOH?: No Does the pt have substance abuse?: No - Family History Family history: reports: Other (HTN) - Immunizations Immunizations are current?: Yes - POLST Patient has POLST: No PD ED PE NORMAL - Vitals Vital signs reviewed: Yes - General General: Alert and oriented X 3, No acute distress - HEENT HEENT: PERRL, EOMI - Neck Neck: Supple, no meningeal sign, No bony TTP - Cardiac Cardiac: Other (Heart rate is slow and irregular, no appreciable murmur.) - Respiratory Respiratory: No respiratory distress, Clear bilaterally - Abdomen Abdomen: Non tender - Back Back: No CVA TTP, No spinal TTP - Derm Derm: Normal color, Warm and dry - Extremities Extremities: No edema, No calf tenderness / cord - Neuro Neuro: Alert and oriented X 3, No motor deficit, No sensory deficit, Normal speech Eye Opening: Spontaneous Motor: Obeys Commands Verbal: Oriented GCS Score: 15 Results - Vitals Vitals: Vital Signs - 24 hr 08/08/20 08/08/20 19:20 20:38 Temperature 37.2 C 37.1 C Heart Rate 85 40 L Respiratory 18 18 Rate Blood Pressure 179/71 H 132/71 H O2 Saturation 97 100 Oxygen O2 Source Room air - EKG (time done) 1927 Rate: Rate (enter#) (44) Rhythm: Atrial fibrillation (vs junctional) Intervals: LBBB Compare to prior EKG: Unchanged from prior EKG Computer interpretation: Agree with computer - Labs Labs: Laboratory Tests 08/08/20 08/08/20 08/08/20 19:45 19:45 19:45 WBC 7.2 RBC 4.05 L Hgb 12.1 L Hct 36.5 L MCV 90.1 MCH 29.9 MCHC 33.2 RDW 14.1 Plt Count 161 MPV 9.5 Neut # (Auto) 5.3 Lymph # (Auto) 1.1 L [place] # (Auto) 0.6 Eos # (Auto) 0.0 Baso # (Auto) 0.0 Absolute Nucleated RBC 0.00 Nucleated RBC % 0.0 Sodium 137 Potassium 4.1 Chloride 98 L Carbon Dioxide 26 Anion Gap 13.0 BUN 18 Creatinine 0.9 Estimated GFR (MDRD) 81 L Glucose 125 H Calcium 9.8 Total Bilirubin 1.4 H AST 31 ALT 24 Alkaline Phosphatase 78 Troponin I High Sens 22.4 H* B-Natriuretic Peptide Total Protein 7.0 Albumin 4.2 Globulin 2.8 Albumin/Globulin Ratio 1.5 Lipase 26 08/08/20 19:45 WBC RBC Hgb Hct MCV MCH MCHC RDW Plt Count MPV Neut # (Auto) Lymph # (Auto) [place] # (Auto) Eos # (Auto) Baso # (Auto) Absolute Nucleated RBC Nucleated RBC % Sodium Potassium Chloride Carbon Dioxide Anion Gap BUN Creatinine Estimated GFR (MDRD) Glucose Calcium Total Bilirubin AST ALT Alkaline Phosphatase Troponin I High Sens B-Natriuretic Peptide 652 H Total Protein Albumin Globulin Albumin/Globulin Ratio Lipase - Rads (name of study) 1v chest Radiology: EMP read contemporaneously (Cardiomegaly with central venous congestion suspicious for CHF.) PD MEDICAL DECISION MAKING - ED course ED course: 79-year-old gentleman presents with fatigue and malaise similar to prior episodes of CHF. Noted to be in a slow junctional rhythm versus slow atrial fibrillation. He is not on any rate lowering agents. He states that this is a chronic phenomenon, sure enough the chart was reviewed and it looks like his baseline heart rate is variable and around 40. He states that his telegraph service clerk has never discussed a pacemaker, but he has not been having angina or syncopal episodes. Note made that at the last visit a search for vascular etiologies was entertained with CT of the abdomen and pelvis and chest without pertinent positive findings. He is in CHF here, albeit mild with good vital signs. Recommended that he double his Lasix from 40 mg daily to twice daily. He will start in the morning given the time of night. Also recommended that he talk with his telegraph service clerk about his chronic low heart rate and if a pacemaker would be useful. Note made of the troponin, review of old troponins show that it is always in this range, this is actually a little less than prior values. Departure - Departure Disposition: Home, Self Care Clinical Impression: Congestive heart failure Qualifiers: Heart failure type: unspecified Heart failure chronicity: acute on chronic Qualified Code(s): I50.9 - Heart failure, unspecified Condition: Good Instructions: ED CHF General Comments: Increase your furosemide to 40 mg twice daily starting tomorrow morning. Talk with your telegraph service clerk on Monday, we note that your heart rate is chronically in the high 30s to 40 or so. Wonder if a pacemaker might relieve some of your symptoms. Return if worsening. Discharge Date/Time: 08/08/20 20:38
[2020-08-08 19:52] LABS: BASOPHILS % (AUTO) 0.6 %; EOSINOPHILS % (AUTO) 0.6 %; HGB - HEMOGLOBIN 12.1 g/dL (14.0-18.0); LYMPHOCYTES # (AUTO) 1.1 10^3/uL (1.5-3.5); LYMPHOCYTES % (AUTO) 15.2 %; MEAN CORPUSCULAR HEMOGLOBIN 29.9 pg (27.0-31.0); MEAN CORPUSCULAR HGB CONC 33.2 g/dL (32.0-36.0); MEAN CORPUSCULAR VOLUME 90.1 fL (80.0-94.0); MEAN PLATELET VOLUME 9.5 fL (7.4-11.4); MONOCYTES # (AUTO) 0.6 10^3/uL (0.0-1.0); MONOCYTES % (AUTO) 8.9 %; NEUTROPHILS # (AUTO) 5.3 10^3/uL (1.5-6.6); PLT - PLATELET COUNT 161 10^3/uL (130-450); RED BLOOD COUNT 4.05 10^6/uL (4.70-6.10); RED CELL DISTRIBUTION WIDTH 14.1 % (12.0-15.0); WHITE BLOOD COUNT 7.2 x10^3/uL (4.8-10.8)
--- NOTE | 2020-08-08 20:02 | XRAY Report ---
PROCEDURE: Chest 1 View X-Ray INDICATIONS: Chest pain TECHNIQUE: One view of the chest was acquired. COMPARISON: 07/06/2020 FINDINGS: Surgical changes and devices: None. Lungs and pleura: No pleural effusions or pneumothorax. Central pulmonary venous congestion and inte rstitial prominence suggesting CHF. Mediastinum: Mediastinal contours appear normal. Heart is enlarged Bones and chest wall: No suspicious bony lesions. Overlying soft tissues appear unremarkable. IMPRESSION: Cardiomegaly with central venous congestion and interstitial prominence suspicious for CHF. Reviewed by: Aparna Crawford MD, PhD on 08/08/2020 8:00 PM PDT Approved by: Aparna Crawford MD, PhD on 08/08/2020 8:00 PM PDT Station ID: [id number]
[2020-08-08 20:06] LABS: ALBUMIN 4.2 g/dL (3.2-5.5); ALBUMIN/GLOBULIN RATIO 1.5 (1.0-2.2); BILIRUBIN,TOTAL 1.4 mg/dL (0.2-1.0); CALCIUM 9.8 mg/dL (8.5-10.3); CREATININE 0.9 mg/dL (0.6-1.2)
[2020-08-08 20:40] VITALS: BP 132/71
== END 2020-08-08 20:38 | disposition home or self-care (01) ==
LOC: ED 19:19
DX: I11.0 Hypertensive heart disease with heart failure (principal); I50.9 Heart failure, unspecified; I48.91 Unspecified atrial fibrillation; I44.7 Left bundle-branch block, unspecified; I08.0 Rheumatic disorders of both mitral and aortic valves; D64.9 Anemia, unspecified; Z79.82 Long term (current) use of aspirin
CPT/HCPCS: 36415; 71045; 80053; 83690; 83880; 84484; 85025; 93005; 99284

== ENCOUNTER 2020-08-20 12:37 | Outpatient (CLI) | payer MEDICARE, OTHER ==
[2020-08-20 12:58] LABS: CALCIUM 9.8 mg/dL (8.5-10.3)
== END 2020-08-20 12:38 | disposition home or self-care (01) ==
LOC: LAB 12:37
PROVIDERS: ATTEND Internal Medicine Cardiovascular Disease
DX: I50.9 Heart failure, unspecified (principal)
CPT/HCPCS: 36415; 80048; 83880

== ENCOUNTER 2020-12-30 21:03 | Emergency (ER) | payer MEDICARE, OTHER ==
--- NOTE | 2020-12-30 21:23 | ED Physician Documentation ---
History of Present Illness - Stated complaint Stated Complaint: HEAD INJURY - Chief complaint Chief Complaint: Trauma Hd/Nk - Additonal information Additional information: 80-year-old male presents emergency department for evaluation of minor head trauma while on Eliquis. He reports that he was bending over to remove a newspaper box and when he stood up he banged the top of his head forcefully on the mailbox. There was no loss of consciousness. However he is on 45-day Course of anticoagulation as he just recently had the watchman device placed secondary to history of atrial fibrillation and his desire not to be on long- term anticoagulation. He also recently had a pacemaker placed in mid October at [facility]. No loss of consciousness no vomiting. Denies chest pain or shortness of air he is a very robust appearing 80-year-old male Review of Systems Constitutional: denies: Fever, Chills Eyes: denies: Loss of vision, Decreased vision Ears: denies: Loss of hearing, Ear pain Nose: reports: Reviewed and negative Throat: reports: Reviewed and negative Cardiac: reports: Reviewed and negative Respiratory: reports: Reviewed and negative GI: reports: Reviewed and negative : reports: Reviewed and negative Skin: reports: Lesions (Superficial abrasion on the top of the occiput) Musculoskeletal: reports: Reviewed and negative Neurologic: reports: Generalized weakness, Focal weakness, Headache, Head injury. denies: Numbness, Syncope, Seizure, Confused, LOC Psychiatric: reports: Reviewed and negative PD PAST MEDICAL HISTORY - Past Medical History Past Medical History: Yes Cardiovascular: Congestive heart failure, Hypertension, Other Respiratory: None Endocrine/Autoimmune: None GI: Hemorrhoids : None HEENT: Glaucoma Psych: None Musculoskeletal: None Derm: None - Past Surgical History Past Surgical History: Yes General: Cholecystectomy, Other Cardiovascular: Pacemaker HEENT: Tonsil/Adenoidectomy - Present Medications Home Medications: Ambulatory Orders Medication Instructions Recorded Confirmed Aspirin 81 mg PO DAILY PM 10/29/13 07/06/20 Ascorbic Acid [Vitamin C] 1,000 mg PO DAILY 08/29/17 12/30/20 Cholecalciferol (Vitamin D3) 4,000 unit PO DAILY 08/29/17 12/30/20 [Vitamin D3] Green Tea [place] Extract [Green Tea 1 cap PO DAILY 08/29/17 12/30/20 Extract] Latanoprost 0.005% Ophth Drops 1 drops EACHEYE QPM 08/29/17 12/30/20 [Xalatan Ophth Drops] [place]-3S/Dha/Epa/Fish Oil [Fish 1 each PO DAILY 08/29/17 12/30/20 Oil [place]-3 Softgel] Isosorbide Mononitrate ER [Imdur] 60 mg PO DAILY #10 tablet 09/10/17 12/30/20 Furosemide [Lasix] 40 mg PO DAILY #30 tablet 04/06/20 12/30/20 Losartan Potassium 25 mg PO DAILY 07/06/20 12/30/20 Apixaban [Eliquis] 5 mg PO BID 12/30/20 12/30/20 - Allergies Allergies/Adverse Reactions: Allergies Allergy/AdvReac Type Severity Reaction Status Date / Time cephalexin monohydrate * Allergy Intermediate Hallucinati Verified 12/30/20 21:06 [From Keflex] ons levofloxacin [From Levaquin] Allergy Intermediate Rash Verified 12/30/20 21:06 codeine Allergy Edema with Verified 12/30/20 21:06 SOA guaifenesin Allergy Edema with Verified 12/30/20 21:06 [From Guaiatussin AC] SOA - Social History Does the pt smoke?: No Smoking Status: Never smoker Does the pt drink ETOH?: No Does the pt have substance abuse?: No - Immunizations Immunizations are current?: Yes - POLST Patient has POLST: No PD ED PE EXPANDED - General General: Alert, No acute distress - HEENT HEENT: Dry mucous membranes, Other (superficial scalp abrasion top of occiput) - Neck Neck: Stiff neck. No: Adenopathy - Cardiac Cardiac: Irregularly irregular, Murmur Present, Radial strong equal, Cap refill < 2 sec - Respiratory Respiratory: Clear to ausultation tripp. No: Labored - Derm Derm: Abrasion (s) (top of occiput) - Extremities Extremities: Normal. No: Deformity, Tenderness - Neuro Neuro: Alert and Oriented X 3, CNII-XII intact, Cerebellar nl, Normal gait, Normal finger nose, Normal speech - GCS Eye Opening: Spontaneous Motor: Obeys Commands Verbal: Oriented Total: 15 Results - Vitals Vitals: Vital Signs - 24 hr 12/30/20 12/30/20 21:07 21:10 Temperature 36.8 C 36.8 C Heart Rate 66 66 Respiratory 18 18 Rate Blood Pressure 190/87 H 190/87 H O2 Saturation 98 98 Oxygen O2 Source Room air - Rads (name of study) CT head Radiology: Prelim report reviewed (No acute intracranial findings) PD MEDICAL DECISION MAKING - ED course Complexity details: reviewed results, re-evaluated patient, d/w patient ED course: 80-year-old male presents emergency department requesting a head CT after he bumped his head on the metal mailbox when stooping over and then standing up. He recently started anticoagulation for about the next 45 days as he had the watchman device placed secondary to history of atrial fibrillation. He does not wish to be long-term anticoagulated. Despite anticoagulation this is a low risk mechanism but we will proceed with a CT of the head. If negative stable for discharge home. Superficial abrasion on the top of his head should be nothing more than bacitracin. Emergent return precautions were discussed for suddenly severe headache weakness or focal neuro deficits Departure - Departure Disposition: 01 Home, Self Care Clinical Impression: Anticoagulated Abrasion of head Qualifiers: Encounter type: initial encounter Qualified Code(s): S00.91XA - Abrasion of unspecified part of head, initial encounter Condition: Stable Record reviewed to determine appropriate education?: Yes Comments: You were seen in the emergency department today for an abrasion on your head after hitting your mailbox while taking anticoagulation. The CT of your head does not show any bruising or bleeding. No special care is required at this time. You can continue to take the Eliquis. If you develop a suddenly severe headache, have slurred speech or weakness in your arms or legs or have 2 or more episodes of uncontrolled vomiting please return immediately to the ER. I do recommend that you place a small amount of any antibiotic ointment such as bacitracin or Neosporin to the abrasion on the top of yoru head.
[2020-12-30] MEDS ORDERED: BACITRACIN ZINC OINT 1 PACKET TOP STA (21:43)
[2020-12-30 22:41] VITALS: BP 172/81
--- NOTE | 2020-12-31 07:30 | CT Report ---
PROCEDURE: HEAD WO INDICATIONS: hit head; anticoagulated TECHNIQUE: Noncontrast 4.5 mm thick angled axial sections acquired from the foramen magnum to the vertex. For r adiation dose reduction, the following was used: automated exposure control, adjustment of mA and/or kV according to patient size. COMPARISON: None. FINDINGS: Image quality: Excellent. CSF spaces: Basal cisterns are patent. No extra-axial fluid collections. Ventricles are normal in size and shape. Brain: No midline shift. No intracranial masses or hemorrhage. [place]-white matter interface is norm al. Skull and face: Calvarium and visualized facial bones are intact, without suspicious lesions. Sinuses: Visualized sinuses and mastoids are clear. IMPRESSION: No acute intracranial disease process. Reviewed by: Aparna Crawford MD, PhD on 12/31/2020 7:28 AM PDT Approved by: Aparna Crawford MD, PhD on 12/31/2020 7:28 AM PDT Station ID: [id number]
== END 2020-12-30 22:40 | disposition home or self-care (01) ==
LOC: ED 21:03
DX: S00.91XA Abrasion of unspecified part of head, initial encounter (principal); W22.8XXA Striking against or struck by other objects, initial encounter; Y93.H9 Activity, other involving exterior property and land maintenance, building and construction; Y92.007 Garden or yard of unspecified non-institutional (private) residence as the place of occurrence of the external cause; Z79.01 Long term (current) use of anticoagulants; Z95.0 Presence of cardiac pacemaker; I10 Essential (primary) hypertension; I48.91 Unspecified atrial fibrillation
CPT/HCPCS: 70450; 99283; 99284; A9270

== ENCOUNTER 2022-01-20 08:00 | Outpatient (CLI) | payer MEDICARE, OTHER ==
--- NOTE | 2022-01-20 17:19 | XRAY Report ---
PROCEDURE: Chest 2 View X-Ray INDICATIONS: COUGH TECHNIQUE: 2 view(s) of the chest. COMPARISON: August 08, 2020 FINDINGS: SUPPORT DEVICES: Interval placement of a left cardiac device. LUNGS/PLEURA: Coarsened interstitial markings. No focal consolidation, pleural effusion or space-occu pying pneumothorax. MEDIASTINUM: Enlargement of cardiac silhouette, compatible with cardiomegaly. BONES/SOFT TISSUES: No acute abnormality. IMPRESSION: 1.No acute cardiopulmonary abnormality. Reviewed by: Ramiro Cid MD on 01/20/2022 5:17 PM PDT Approved by: Ramiro Cid MD on 01/20/2022 5:17 PM PDT Station ID: [id number]
== END 2022-01-20 23:59 | disposition home or self-care (01) ==
LOC: DI.S 08:00
PROVIDERS: ATTEND Emergency Medicine
DX: J18.1 Lobar pneumonia, unspecified organism (principal)

== ENCOUNTER 2023-05-14 14:38 | Emergency (ER) | payer MEDICARE, OTHER ==
--- NOTE | 2023-05-14 14:58 | XRAY Report ---
PROCEDURE: Chest 1 View X-Ray INDICATIONS: chest pain TECHNIQUE: One view of the chest was acquired. COMPARISON: None. FINDINGS: Surgical changes and devices: Left-sided pacer. Lungs and pleura: No pleural effusions or pneumothorax. Lungs are clear. Mediastinum: Mediastinal contours appear normal. Heart size is normal. Bones and chest wall: No suspicious bony lesions. Overlying soft tissues appear unremarkable. IMPRESSION: No acute process. Reviewed by: Russell Mcfarlane MD on 05/14/2023 2:57 PM PDT Approved by: Russell Mcfarlane MD on 05/14/2023 2:57 PM PDT Station ID: [id number]
[2023-05-14 14:59] LABS: BASOPHILS % (AUTO) 0.4 %; EOSINOPHILS % (AUTO) 0.4 %; HCT - HEMATOCRIT 36.6 % (42.0-52.0); HGB - HEMOGLOBIN 12.1 g/dL (14.0-18.0); LYMPHOCYTES # (AUTO) 1.7 10^3/uL (1.5-3.5); LYMPHOCYTES % (AUTO) 20.8 %; MEAN CORPUSCULAR HEMOGLOBIN 29.5 pg (27.0-31.0); MEAN CORPUSCULAR HGB CONC 33.1 g/dL (32.0-36.0); MEAN CORPUSCULAR VOLUME 89.3 fL (80.0-94.0); MEAN PLATELET VOLUME 8.7 fL (7.4-11.4); MONOCYTES # (AUTO) 0.8 10^3/uL (0.0-1.0); MONOCYTES % (AUTO) 9.8 %; NEUTROPHILS # (AUTO) 5.5 10^3/uL (1.5-6.6); NEUTROPHILS % (AUTO) 68.2 %; PLT - PLATELET COUNT 184 10^3/uL (130-450); RED CELL DISTRIBUTION WIDTH 14.6 % (12.0-15.0); WHITE BLOOD COUNT 8.1 x10^3/uL (4.8-10.8)
[2023-05-14 15:17] LABS: ALBUMIN 4.5 g/dL (3.2-5.5); ALBUMIN/GLOBULIN RATIO 1.9 (1.0-2.2); BILIRUBIN,TOTAL 1.1 mg/dL (0.2-1.0); CALCIUM 9.5 mg/dL (8.5-10.3); CREATININE 0.9 mg/dL (0.6-1.3); POTASSIUM 3.7 mmol/L (3.5-4.5); TOTAL PROTEIN 6.9 g/dL (6.4-8.9)
--- OUTSIDE RECORDS SUMMARY | 2023-05-14 15:53 | EXTERNAL MEDICAL SUMMARY RPT | Continuity of Care Document ---
Author Name Unknown Address [address] [place] [address] Phone Organization [facility] Address [address] [place] [address] Phone Care Team Providers Care Resident Inspector Name Role Phone Unavailable Unavailable Unavailable Odessa Sheehan, Marcus Unavailable Unavailable Juhi Jauregui, Marek Unavailable Unavailable Bob Patient Registrar, Kristopher Unavailable U navailable Medications date description facility 2023-04-06 00:00 [facility]onide [facility] 2023-04-07 00:00 [facility]ocinonide [facility] 2023-05-11 00:00 [facility]ocinonide [facility] 2023-05-11 00:00 fluocinonide [facility] 2023-05-12 00:00 fluocinonide [facility] 2023-04-06 00:00 furosemide [facility] 2023-04-07 00:00 furosemide [facility] 2023-05-11 00:00 furosemide [facility] 2023-05-11 00:00 furosemide [facility] [place] 2023-05-12 00:00 furosemide [facility] 2023-05-11 00:00 prednisone [facility] 2023-04-06 00:00 fluocinonide [facility] [place] 2023-04-07 00:00 fluocinonide [facility] [place] 2023-05-11 00:00 fluocinonide [facility] [place] 2023-05-11 00:00 fluocinonide [facility] [place] 2023-05-12 00:00 fluocinonide [facility] [place] 2023-04-06 00:00 ibuprofen [facility] [place] 2023-04-07 00:00 ibuprofen [facility] [place] 2023-05-11 00:00 ibuprofen [facility] [place] 2023-05-11 00:00 ibuprofen [facility] [place] 2023-05-12 00:00 ibuprofen [facility] [place] 2023-05-11 00:00 acyclovir [facility] [place] 2023-04-06 00:00 valacyclovir [facility] [place] 2023-04-06 00:00 valacyclovir [facility] [place] 2023-04-06 00:00 valacyclovir [facility] [place] 2023-05-11 00:00 prednisone [facility] [place] 2023-05-11 00:00 acyclovir [facility] [place] 2023-04-06 00:00 ibuprofen [facility] [place] 2023-04-07 00:00 ibuprofen [facility] [place] 2023-05-11 00:00 ibuprofen [facility] [place] 2023-05-11 00:00 ibuprofen [facility] [place] 2023-05-12 00:00 ibuprofen [facility] [place] 2023-05-11 00:00 prednisone [facility] [place] 2023-05-11 00:00 acyclovir [facility] [place] 2023-05-11 00:00 prednisone [facility] [place] 2023-04-06 00:00 valacyclovir [facility] [place] 2023-04-06 00:00 valacyclovir [facility] [place] 2023-04-06 00:00 valacyclovir [facility] [place] 2023-04-06 00:00 furosemide [facility] [place] 2023-04-07 00:00 furosemide [facility] [place] 2023-05-11 00:00 furosemide [facility] [place] 2023-05-11 00:00 furosemide [facility] [place] 2023-05-12 00:00 furosemide [facility] [place] 2023-04-06 00:00 latanoprost [facility] [place] 2023-04-07 00:00 latanoprost [facility] [place] 2023-05-11 00:00 latanoprost [facility] [place] 2023-05-11 00:00 latanoprost [facility] [place] 2023-05-12 00:00 latanoprost [facility] [place] 2023-04-06 00:00 isosorbide mononitrate [facility] [place] 2023-04-07 00:00 isosorbide mononitrate [facility] [place] 2023-05-11 00:00 isosorbide mononitrate [facility] [place] 2023-05-11 00:00 isosorbide mononitrate [facility] [place] 2023-05-12 00:00 isosorbide mononitrate [facility] [place] 2023-04-06 00:00 valacyclovir [facility] [place] 2023-04-06 00:00 valacyclovir [facility] [place] 2023-04-06 00:00 valacyclovir [facility] [place] 2023-04-06 00:00 isosorbide mononitrate [facility] [place] 2023-04-07 00:00 isosorbide mononitrate [facility] [place] 2023-05-11 00:00 isosorbide mononitrate [facility] [place] 2023-05-11 00:00 isosorbide mononitrate [facility] [place] 2023-05-12 00:00 isosorbide mononitrate [facility] [place] 2023-04-06 00:00 losartan [facility] [place] 2023-04-07 00:00 losartan [facility] [place] 2023-05-11 00:00 losartan [facility] [place] 2023-05-11 00:00 losartan [facility] [place] 2023-05-12 00:00 losartan [facility] [place] 2023-04-06 00:00 furosemide [facility] [place] 2023-04-07 00:00 furosemide [facility] [place] 2023-05-11 00:00 furosemide [facility] [place] 2023-05-11 00:00 furosemide [facility] [place] 2023-05-12 00:00 furosemide [facility] [place] 2023-04-06 00:00 losartan [facility] [place] 2023-04-07 00:00 losartan [facility] [place] 2023-05-11 00:00 losartan [facility] [place] 2023-05-11 00:00 losartan [facility] [place] 2023-05-12 00:00 losartan [facility] [place] 2023-04-06 00:00 latanoprost [facility] [place] 2023-04-07 00:00 latanoprost [facility] [place] 2023-05-11 00:00 latanoprost [facility] [place] 2023-05-11 00:00 latanoprost [facility] [place] 2023-05-12 00:00 latanoprost [facility] [place] 2023-04-06 00:00 isosorbide mononitrate [facility] [place] 2023-04-07 00:00 isosorbide mononitrate [facility] [place] 2023-05-11 00:00 isosorbide mononitrate [facility] [place] 2023-05-11 00:00 isosorbide mononitrate [facility] [place] 2023-05-12 00:00 isosorbide mononitrate [facility] [place] 2023-04-06 00:00 latanoprost [facility] [place] 2023-04-07 00:00 latanoprost [facility] [place] 2023-05-11 00:00 latanoprost [facility] [place] 2023-05-11 00:00 latanoprost [facility] [place] 2023-05-12 00:00 latanoprost [facility] [place] 2023-04-06 00:00 isosorbide mononitrate [facility] [place] 2023-04-07 00:00 isosorbide mononitrate [facility] [place] 2023-05-11 00:00 isosorbide mononitrate [facility] [place] 2023-05-11 00:00 isosorbide mononitrate [facility] [place] 2023-05-12 00:00 isosorbide mononitrate [facility] [place] 2023-05-11 00:00 acyclovir [facility] [place] 2023-04-06 00:00 valacyclovir [facility] [place] 2023-04-06 00:00 valacyclovir [facility] [place] 2023-04-06 00:00 valacyclovir [facility] [place] 2023-04-06 00:00 ibuprofen [facility] [place] 2023-04-07 00:00 ibuprofen [facility] [place] 2023-05-11 00:00 ibuprofen [facility] [place] 2023-05-11 00:00 ibuprofen [facility] [place] 2023-05-12 00:00 ibuprofen [facility] [place] 2023-04-06 00:00 ibuprofen [facility] [place] 2023-04-07 00:00 ibuprofen [facility] [place] 2023-05-11 00:00 ibuprofen [facility] [place] 2023-05-11 00:00 ibuprofen [facility] [place] 2023-05-12 00:00 ibuprofen [facility] [place] 2023-04-06 00:00 losartan [facility] [place] 2023-04-07 00:00 losartan [facility] [place] 2023-05-11 00:00 losartan [facility] [place] 2023-05-11 00:00 losartan [facility] [place] 2023-05-12 00:00 losartan [facility] [place] 2023-04-06 00:00 fluocinonide [facility] [place] 2023-04-07 00:00 fluocinonide [facility] [place] 2023-05-11 00:00 fluocinonide [facility] [place] 2023-05-11 00:00 fluocinonide [facility] [place] 2023-05-12 00:00 fluocinonide [facility] [place] 2023-04-06 00:00 latanoprost [facility] [place] 2023-04-07 00:00 latanoprost [facility] [place] 2023-05-11 00:00 latanoprost [facility] [place] 2023-05-11 00:00 latanoprost [facility] [place] 2023-05-12 00:00 latanoprost [facility] [place] 2023-04-06 00:00 furosemide [facility] [place] 2023-04-07 00:00 furosemide [facility] [place] 2023-05-11 00:00 furosemide [facility] [place] 2023-05-11 00:00 furosemide [facility] [place] 2023-05-12 00:00 furosemide [facility] [place] 2023-04-06 00:00 fluocinonide [facility] [place] 2023-04-07 00:00 fluocinonide [facility] [place] 2023-05-11 00:00 fluocinonide [facility] [place] 2023-05-11 00:00 fluocinonide [facility] [place] 2023-05-12 00:00 fluocinonide [facility] [place] 2023-04-06 00:00 losartan [facility] [place] 2023-04-07 00:00 losartan [facility] [place] 2023-05-11 00:00 losartan [facility] [place] 2023-05-11 00:00 losartan [facility] [place] 2023-05-12 00:00 losartan [facility] [place] 2023-04-06 00:00 aspirin [facility] [place] 2023-04-07 00:00 aspirin [facility] [place] 2023-05-11 00:00 aspirin [facility] [place] 2023-05-11 00:00 aspirin [facility] [place] 2023-05-12 00:00 aspirin [facility] [place] Problems date description facility 2023-04-06 00:00 Herpes zoster withou t mention of complication [facility] [place] 2023-04-06 00:00 Herpes zoster withou t mention of complication [facility] [place] 2023-04-06 00:00 Herpes zoster withou t mention of complication [facility] [place] 2023-04-06 00:00 Hypertensive disorder [facility] [place] 2023-04-06 00:00 Herpes zoster [facility] [place] 2023-04-06 00:00 Herpes zoster [facility] [place] 2023-04-06 00:00 Herpes zoster [facility] [place] 2023-04-06 00:00 Zoster without complications [facility] [place] 2023-04-06 00:00 Zoster without complications [facility] [place] 2023-04-06 00:00 Zoster without complications [facility] [place] 2023-04-06 00:00 Essential (primary) hypertensio n [facility] [place] 2023-04-07 00:00 Hypertensive [address] [facility]-In [facility] [place] 2023-04-07 00:00 Essential (primary) hypertensio n [facility] [place] 2023-05-11 00:00 Herpes zoster withou t mention of complication [facility] [place] 2023-05-11 00:00 Hypertensive disorder [facility] [place] 2023-05-11 00:[address] [facility]-In [facility] [place] 2023-05-11 00:00 Herpes zoster [facility] [place] 2023-05-11 00:00 Zoster without complications [facility] [place] 2023-05-11 00:00 Essential (primary) hypertensio n [facility] [place] 2023-05-11 00:00 Essential (primary) hypertensio n [facility] [place] 2023-05-12 00:00 [address]pertensive [address] [facility]-In [facility] [place] 2023-05-12 00:00 Essential (primary) hypertensio n [facility] [place] Procedures date description facility 2023-04-06 00:00 Visit Code Hold [facility] [place] 2023-04-06 00:00 Visit Code Hold [facility] [place] 2023-04-06 00:00 Visit Code Hold [facility] [place] 2023-05-11 00:00 Visit Code Hold [facility] [place] Social History date description facility 2023-04-06 00:00 Former smoker [facility] [place] 2023-04-06 00:00 Former smoker [facility] [place] 2023-04-06 00:00 Former smoker [facility] [place] 2023-05-11 00:00 Former smoker [facility] [place] Vital Signs date measurement value units 2023-04-06 00:00 BMI 22.90 kg/m2 2023-04-06 00:00 BP_diastolic 79 mmHg 2023-04-06 00:00 BP_systolic 132 mmHg 2023-04-06 00:00 heart_rate 68 /min 2023-04-06 00:00 height_metric 177.8 cm 2023-04-06 00:00 height_standard 70 in 2023-04-06 00:00 respiration_rate 15 /min 2023-04-06 00:00 temperature_metric 36.61 C 2023-04-06 00:00 temperature_standard 97.9 F 2023-04-06 00:00 weight_metric 72.12 kg 2023-04-06 00:00 weight_standard 159 lb 2023-05-11 00:00 BMI 23.18 kg/m2 2023-05-11 00:00 BP_diastolic 97 mmHg 2023-05-11 00:00 BP_systolic 157 mmHg 2023-05-11 00:00 heart_rate 68 /min 2023-05-11 00:00 height_metric 177.8 cm 2023-05-11 00:00 height_standard 70 in 2023-05-11 00:00 respiration_rate 16 /min 2023-05-11 00:00 weight_metric 73.03 kg 2023-05-11 00:00 weight_standard 161 lb
[2023-05-14 16:19] LABS: B. PARAPERTUSSIS- RESP PCR PAN NOT DETECTED; B. PERTUSSIS- RESP PCR PANEL NOT DETECTED; C. PNEUMONIAE- RESP PCR PANEL NOT DETECTED; CORONAVIRUS 229E-RESP PCR NOT DETECTED; CORONAVIRUS HKU1-RESP PCR NOT DETECTED; CORONAVIRUS NL63-RESP PCR NOT DETECTED; CORONAVIRUS OC43-RESP PCR NOT DETECTED; HUMAN METAPNEUMOVIRUS NOT DETECTED; INFLUENZA A- RESP PCR PANEL NOT DETECTED; INFLUENZA B - RESP PCR PANEL NOT DETECTED; M. PNEUMONIAE- RESP PCR PANEL NOT DETECTED; PARAINFLUENZA VIRUS 1 NOT DETECTED; PARAINFLUENZA VIRUS 2 NOT DETECTED; PARAINFLUENZA VIRUS 3 NOT DETECTED; PARAINFLUENZA VIRUS 4 NOT DETECTED; RHINOVIRUS/ENTEROVIRUS NOT DETECTED; RSV- RESP PCR PANEL NOT DETECTED; SARS-CoV-2 -RESP PCR PANEL NOT DETECTED
--- NOTE | 2023-05-14 16:51 | ED Physician Documentation ---
PD HPI DYSPNEA - Stated complaint Stated Complaint: SOA,TIGHTNESS,COUGH - Chief complaint Chief Complaint: Resp - History obtained from History obtained from: Patient - Additional information Additional information: The patient comes to the emergency department chief complaint of exertional dyspnea seems somewhat worse over the last 5 weeks. He has a history of congestive heart failure, pacemaker placement, and unknown valvular regurgitation, but generally, symptoms are well controlled. However, he was diagnosed with shingles about 5 weeks ago and states that since then, he has felt rundown. He states that he has not had any cough or fever, and has not noticed any swelling in his legs, but just feels that his exercise tolerance is much decreased from what it usually is. 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 He states that recently, he has had to stop at least twice going up hills that he normally gets up with no problem, due to fatigue and shortness of breath. He denies any chest pain. He states that his zoster rash has resolved and that he has been taking his acyclovir faithfully. He is also finishing a course of prednisone. The patient states his last echocardiogram with Dr. Guillen was at least 2 years ago. He also sees Dr. Misael Barth for primary care. No other complaints at this time. PD PAST MEDICAL HISTORY - Past Medical History Cardiovascular: Congestive heart failure, Hypertension, Other Respiratory: None Endocrine/Autoimmune: None GI: Hemorrhoids : None HEENT: Glaucoma Psych: None Musculoskeletal: None Derm: None - Past Surgical History Past Surgical History: Yes General: Cholecystectomy, Other Cardiovascular: Pacemaker HEENT: Tonsil/Adenoidectomy - Present Medications Home Medications: Ambulatory Orders Medication Instructions Recorded Confirmed Aspirin 81 mg PO DAILY PM 10/29/13 07/06/20 Ascorbic Acid [Vitamin C] 1,000 mg PO DAILY 08/29/17 12/30/20 Cholecalciferol (Vitamin D3) 4,000 unit PO DAILY 08/29/17 12/30/20 [Vitamin D3] Green Tea [place] Extract [Green Tea 1 cap PO DAILY 08/29/17 12/30/20 Extract] Latanoprost 0.005% Ophth Drops 1 drops EACHEYE QPM 08/29/17 12/30/20 [Xalatan Ophth Drops] [place]-3S/Dha/Epa/Fish Oil [Fish 1 each PO DAILY 08/29/17 12/30/20 Oil [place]-3 Softgel] Isosorbide Mononitrate ER [Imdur] 60 mg PO DAILY #10 tablet 09/10/17 12/30/20 Furosemide [Lasix] 40 mg PO DAILY #30 tablet 04/06/20 12/30/20 Losartan Potassium 25 mg PO DAILY 07/06/20 12/30/20 Apixaban [Eliquis] 5 mg PO BID 12/30/20 12/30/20 - Allergies Allergies/Adverse Reactions: Allergies Allergy/AdvReac Type Severity Reaction Status Date / Time cephalexin monohydrate * Allergy Intermediate Hallucinati Verified 12/30/20 21:06 [From Keflex] ons levofloxacin [From Levaquin] Allergy Intermediate Rash Verified 12/30/20 21:06 codeine Allergy Edema with Verified 12/30/20 21:06 SOA guaifenesin Allergy Edema with Verified 12/30/20 21:06 [From Guaiatussin AC] SOA - Social History Does the pt smoke?: No Smoking Status: Never smoker Does the pt drink ETOH?: No Does the pt have substance abuse?: No - Immunizations Immunizations are current?: Yes - POLST Patient has POLST: No PD ED PE NORMAL - Vitals Vital signs reviewed: Yes - General General: Alert and oriented X 3, No acute distress, Well developed/nourished - HEENT HEENT: Atraumatic, PERRL, EOMI, Moist mucous membranes - Neck Neck: Supple, no meningeal sign - Cardiac Cardiac: RRR, No murmur - Respiratory Respiratory: No respiratory distress, Clear bilaterally - Abdomen Abdomen: Soft, Non tender, Non distended - Derm Derm: Normal color, Warm and dry, No rash - Extremities Extremities: No deformity, No edema - Neuro Neuro: Alert and oriented X 3 - Psych Psych: Normal mood, Normal affect Results - Vitals Vitals: Vital Signs - 24 hr 05/14/23 05/14/23 14:39 17:00 Temperature 36.7 C Heart Rate 66 60 Respiratory 22 24 Rate Blood Pressure 162/79 H 137/81 H O2 Saturation 98 96 Oxygen O2 Source Room air - EKG (time done) 1520 EKG releavant findings:: EKG personally interpreted by author of this note. Relevant findings are: Rate: Rate (enter#) (66) Rhythm: Paced [place]: Anterior hemiblock Intervals: RBBB Computer interpretation: Agree with computer - Labs Labs: Laboratory Tests 05/14/23 05/14/23 05/14/23 14:54 14:54 14:54 WBC 8.1 RBC 4.10 L Hgb 12.1 L Hct 36.6 L MCV 89.3 MCH 29.5 MCHC 33.1 RDW 14.6 Plt Count 184 MPV 8.7 Neut # (Auto) 5.5 Lymph # (Auto) 1.7 [place] # (Auto) 0.8 Eos # (Auto) 0.0 Baso # (Auto) 0.0 Absolute Nucleated RBC 0.00 Nucleated RBC % 0.0 Sodium 132 L Potassium 3.7 Chloride 97 L Carbon Dioxide 30 Anion Gap 5.0 L BUN 14 Creatinine 0.9 Estimated GFR (MDRD) 81 L Glucose 111 H Calcium 9.5 Total Bilirubin 1.1 H AST 33 ALT 35 Alkaline Phosphatase 51 B-Natriuretic Peptide 621 H Total Protein 6.9 Albumin 4.5 Globulin 2.4 Albumin/Globulin Ratio 1.9 Lipase 10 L Nasal Adenovirus (PCR) Nasal B. parapertussis DNA (PCR) Nasal Coronavir 229E PCR Nasal Coronavir HKU1 PCR Nasal Coronavir NL63 PCR Nasal Coronavir OC43 PCR Nasal Enterovir/Rhinovir PCR Nasal Influenza B PCR Nasal Influenza A PCR Nasal Parainfluen 1 PCR Nasal Parainfluen 2 PCR Nasal Parainfluen 3 PCR Nasal Parainfluen 4 PCR Nasal RSV (PCR) Nasal B.pertussis DNA PCR Nasal C.pneumoniae (PCR) Srini Human Metapneumo PCR Nasal M.pneumoniae (PCR) Nasal SARS-CoV-2 (PCR) 05/14/23 15:23 WBC RBC Hgb Hct MCV MCH MCHC RDW Plt Count MPV Neut # (Auto) Lymph # (Auto) [place] # (Auto) Eos # (Auto) Baso # (Auto) Absolute Nucleated RBC Nucleated RBC % Sodium Potassium Chloride Carbon Dioxide Anion Gap BUN Creatinine Estimated GFR (MDRD) Glucose Calcium Total Bilirubin AST ALT Alkaline Phosphatase B-Natriuretic Peptide Total Protein Albumin Globulin Albumin/Globulin Ratio Lipase Nasal Adenovirus (PCR) NOT DETECTED Nasal B. parapertussis DNA (PCR) NOT DETECTED Nasal Coronavir 229E PCR NOT DETECTED Nasal Coronavir HKU1 PCR NOT DETECTED Nasal Coronavir NL63 PCR NOT DETECTED Nasal Coronavir OC43 PCR NOT DETECTED Nasal Enterovir/Rhinovir PCR NOT DETECTED Nasal Influenza B PCR NOT DETECTED Nasal Influenza A PCR NOT DETECTED Nasal Parainfluen 1 PCR NOT DETECTED Nasal Parainfluen 2 PCR NOT DETECTED Nasal Parainfluen 3 PCR NOT DETECTED Nasal Parainfluen 4 PCR NOT DETECTED Nasal RSV (PCR) NOT DETECTED Nasal B.pertussis DNA PCR NOT DETECTED Nasal C.pneumoniae (PCR) NOT DETECTED Srini Human Metapneumo PCR NOT DETECTED Nasal M.pneumoniae (PCR) NOT DETECTED Nasal SARS-CoV-2 (PCR) NOT DETECTED - Rads (name of study) Chest x-ray Relevant Findings:: Final report received, See rad report (Cardiomegaly otherwise negative; Pacemaker wires intact) PD Medical Decision Making - ED course Complexity details: reviewed old records, reviewed results, re-evaluated patient, considered differential, d/w patient ED course: The patient overall is very well-appearing in the emergency department. I did evaluate him with a EKG, which showed an intact functioning pacemaker, and also, with chest x-ray, which was negative for acute findings, specifically no pne umonia or pulmonary edema. The patient was evaluated with laboratory studies, including a CBC which showed a normal white blood cell count, and mild anemia at 12.1 hemoglobin. His ER abdominal panel showed slight hyponatremia 132 and a BNP of 621, which was higher than his last level in August 2020 but within the high to low range the patient has previously been on other visits. His viral panel was negative. I discussed with the patient that I am not entirely sure why he feels fatigued and dyspneic. He does have underlying congestive heart failure and it is possible that with his viral syndrome, the combination of the 2 has just generally caused him to feel fatigued. I have advised him to talk with his primary doctor and his curriculum and assessment director about having a repeat echocardiogram done to see if his EF has declined significantly. I have advised the patient to call both in the morning, as today is Monday. The patient overall appears very well and I feel he stable for discharge home. We have discussed home management of the symptoms, as well as the usual indications for return. Departure - Departure Disposition: 01 Home, Self Care Clinical Impression: Viral syndrome Dyspnea Qualifiers: Dyspnea type: dyspnea on exertion Qualified Code(s): R06.09 - Other forms of dyspnea Congestive heart failure Qualifiers: Heart failure type: unspecified Heart failure chronicity: chronic Qualified Code(s): I50.9 - Heart failure, unspecified Condition: Stable Instructions: ED CHF General, ED Viral Syndrome Comments: At this point in time, your chest x-ray actually looks very good, and there is no sign of pneumonia whatsoever. You do have an enlarged heart and additionally, your BNP, which is a marker of congestive heart failure, is elevated. Although you do not appear to be in an acute flareup of your congestive heart failure, the combination of the effects of the virus that causes shingles, as well as the underlying congestive heart failure, may be combining to cause your sense of shortness of breath. Your pacemaker appears to be functioning well, and is giving you an overall heart rate in the 60s. At this point in time, you may need more time to recover from the shingles and its effects on your body. You may continue to walk as much as you can tolerate, with rest when you need them. You should make the next available appointment to follow-up with your primary doctor to [place] back on your shortness of breath and fatigue. Your doctor may recommend that you see your curriculum and assessment director again and determine whether a repeat echocardiogram or other testing is necessary. If you develop severe shortness of breath or chest pain, please return to the emergency department. Forms: PCP List Discharge Date/Time: 05/14/23 17:09
[2023-05-14 17:01] VITALS: BP 137/81
== END 2023-05-14 17:09 | disposition home or self-care (01) ==
LOC: ED 14:38
DX: B34.9 Viral infection, unspecified (principal); I11.0 Hypertensive heart disease with heart failure; I50.9 Heart failure, unspecified; Z95.0 Presence of cardiac pacemaker
CPT/HCPCS: 36415; 80053; 83690; 83880; 85025; 87633; 93005; 99283; 99284

== ENCOUNTER 2023-07-17 13:30 | Emergency (ER) | payer MEDICARE, OTHER ==
[2023-07-17 13:41] VITALS: O2SAT 98
--- OUTSIDE RECORDS SUMMARY | 2023-07-17 13:49 | EXTERNAL MEDICAL SUMMARY RPT | Continuity of Care Document ---
Author Name Unknown Address [address] [place] [address] Phone Organization [facility] Address [address] [place] [address] Phone Care Team Providers Care Top Waddy Name Role Phone Unavailable Unavailable Unavailable Marcus Saxena Md Unavailable Unavailable Bob Patient Registrar, Kristopher Unavailable U navailable Bob Patient Registrar, Kristopher Unavailable U navailable Medications date description facility 2023-05-11 00:00 [facility]ide [facility] 2023-05-11 00:00 [facility]ocinonide [facility] 2023-05-12 00:00 [facility]ocinonide [facility] 2023-05-19 00:00 fluocinonide [facility] 2023-05-19 00:00 fluocinonide [facility] 2023-05-22 00:00 fluocinonide [facility] 2023-05-19 00:00 betamethasone dipropionate [facility] 2023-05-22 00:00 betamethasone dipropionate [facility] 2023-05-11 00:00 furosemide [facility] 2023-05-11 00:00 furosemide [facility] 2023-05-12 00:00 furosemide [facility] 2023-05-19 00:00 furosemide [facility] 2023-05-19 00:00 furosemide [facility] [place] 2023-05-22 00:00 furosemide [facility] [place] 2023-05-11 00:00 prednisone [facility] [place] 2023-05-11 00:00 prednisone [facility] [place] 2023-05-11 00:00 fluocinonide [facility] [place] 2023-05-11 00:00 fluocinonide [facility] [place] 2023-05-12 00:00 fluocinonide [facility] [place] 2023-05-19 00:00 fluocinonide [facility] [place] 2023-05-19 00:00 fluocinonide [facility] [place] 2023-05-22 00:00 fluocinonide [facility] [place] 2023-05-11 00:00 ibuprofen [facility] [place] 2023-05-11 00:00 ibuprofen [facility] [place] 2023-05-12 00:00 ibuprofen [facility] [place] 2023-05-19 00:00 ibuprofen [facility] [place] 2023-05-19 00:00 ibuprofen [facility] [place] 2023-05-22 00:00 ibuprofen [facility] [place] 2023-05-11 00:00 acyclovir [facility] [place] 2023-05-11 00:00 acyclovir [facility] [place] 2023-05-11 00:00 prednisone [facility] [place] 2023-05-11 00:00 prednisone [facility] [place] 2023-05-11 00:00 acyclovir [facility] [place] 2023-05-11 00:00 acyclovir [facility] [place] 2023-05-11 00:00 ibuprofen [facility] [place] 2023-05-11 00:00 ibuprofen [facility] [place] 2023-05-12 00:00 ibuprofen [facility] [place] 2023-05-19 00:00 ibuprofen [facility] [place] 2023-05-19 00:00 ibuprofen [facility] [place] 2023-05-22 00:00 ibuprofen [facility] [place] 2023-05-11 00:00 prednisone [facility] [place] 2023-05-11 00:00 prednisone [facility] [place] 2023-05-19 00:00 betamethasone dipropionate [facility] [place] 2023-05-22 00:00 betamethasone dipropionate [facility] [place] 2023-05-11 00:00 acyclovir [facility] [place] 2023-05-11 00:00 acyclovir [facility] [place] 2023-05-19 00:00 betamethasone dipropionate [facility] [place] 2023-05-22 00:00 betamethasone dipropionate [facility] [place] 2023-05-11 00:00 prednisone [facility] [place] 2023-05-11 00:00 prednisone [facility] [place] 2023-05-11 00:00 furosemide [facility] [place] 2023-05-11 00:00 furosemide [facility] [place] 2023-05-12 00:00 furosemide [facility] [place] 2023-05-19 00:00 furosemide [facility] [place] 2023-05-19 00:00 furosemide [facility] [place] 2023-05-22 00:00 furosemide [facility] [place] 2023-05-11 00:00 latanoprost [facility] [place] 2023-05-11 00:00 latanoprost [facility] [place] 2023-05-12 00:00 latanoprost [facility] [place] 2023-05-19 00:00 latanoprost [facility] [place] 2023-05-19 00:00 latanoprost [facility] [place] 2023-05-22 00:00 latanoprost [facility] [place] 2023-05-11 00:00 isosorbide mononitrate [facility] [place] 2023-05-11 00:00 isosorbide mononitrate [facility] [place] 2023-05-12 00:00 isosorbide mononitrate [facility] [place] 2023-05-19 00:00 isosorbide mononitrate [facility] [place] 2023-05-19 00:00 isosorbide mononitrate [facility] [place] 2023-05-22 00:00 isosorbide mononitrate [facility] [place] 2023-05-11 00:00 isosorbide mononitrate [facility] [place] 2023-05-11 00:00 isosorbide mononitrate [facility] [place] 2023-05-12 00:00 isosorbide mononitrate [facility] [place] 2023-05-19 00:00 isosorbide mononitrate [facility] [place] 2023-05-19 00:00 isosorbide mononitrate [facility] [place] 2023-05-22 00:00 isosorbide mononitrate [facility] [place] 2023-05-11 00:00 losartan [facility] [place] 2023-05-11 00:00 losartan [facility] [place] 2023-05-12 00:00 losartan [facility] [place] 2023-05-19 00:00 losartan [facility] [place] 2023-05-19 00:00 losartan [facility] [place] 2023-05-22 00:00 losartan [facility] [place] 2023-05-11 00:00 furosemide [facility] [place] 2023-05-11 00:00 furosemide [facility] [place] 2023-05-12 00:00 furosemide [facility] [place] 2023-05-19 00:00 furosemide [facility] [place] 2023-05-19 00:00 furosemide [facility] [place] 2023-05-22 00:00 furosemide [facility] [place] 2023-05-11 00:00 losartan [facility] [place] 2023-05-11 00:00 losartan [facility] [place] 2023-05-12 00:00 losartan [facility] [place] 2023-05-19 00:00 losartan [facility] [place] 2023-05-19 00:00 losartan [facility] [place] 2023-05-22 00:00 losartan [facility] [place] 2023-05-11 00:00 latanoprost [facility] [place] 2023-05-11 00:00 latanoprost [facility] [place] 2023-05-12 00:00 latanoprost [facility] [place] 2023-05-19 00:00 latanoprost [facility] [place] 2023-05-19 00:00 latanoprost [facility] [place] 2023-05-22 00:00 latanoprost [facility] [place] 2023-05-11 00:00 isosorbide mononitrate [facility] [place] 2023-05-11 00:00 isosorbide mononitrate [facility] [place] 2023-05-12 00:00 isosorbide mononitrate [facility] [place] 2023-05-19 00:00 isosorbide mononitrate [facility] [place] 2023-05-19 00:00 isosorbide mononitrate [facility] [place] 2023-05-22 00:00 isosorbide mononitrate [facility] [place] 2023-05-11 00:00 latanoprost [facility] [place] 2023-05-11 00:00 latanoprost [facility] [place] 2023-05-12 00:00 latanoprost [facility] [place] 2023-05-19 00:00 latanoprost [facility] [place] 2023-05-19 00:00 latanoprost [facility] [place] 2023-05-22 00:00 latanoprost [facility] [place] 2023-05-11 00:00 isosorbide mononitrate [facility] [place] 2023-05-11 00:00 isosorbide mononitrate [facility] [place] 2023-05-12 00:00 isosorbide mononitrate [facility] [place] 2023-05-19 00:00 isosorbide mononitrate [facility] [place] 2023-05-19 00:00 isosorbide mononitrate [facility] [place] 2023-05-22 00:00 isosorbide mononitrate [facility] [place] 2023-05-11 00:00 acyclovir [facility] [place] 2023-05-11 00:00 acyclovir [facility] [place] 2023-05-11 00:00 ibuprofen [facility] [place] 2023-05-11 00:00 ibuprofen [facility] [place] 2023-05-12 00:00 ibuprofen [facility] [place] 2023-05-19 00:00 ibuprofen [facility] [place] 2023-05-19 00:00 ibuprofen [facility] [place] 2023-05-22 00:00 ibuprofen [facility] [place] 2023-05-11 00:00 ibuprofen [facility] [place] 2023-05-11 00:00 ibuprofen [facility] [place] 2023-05-12 00:00 ibuprofen [facility] [place] 2023-05-19 00:00 ibuprofen [facility] [place] 2023-05-19 00:00 ibuprofen [facility] [place] 2023-05-22 00:00 ibuprofen [facility] [place] 2023-05-11 00:00 losartan [facility] [place] 2023-05-11 00:00 losartan [facility] [place] 2023-05-12 00:00 losartan [facility] [place] 2023-05-19 00:00 losartan [facility] [place] 2023-05-19 00:00 losartan [facility] [place] 2023-05-22 00:00 losartan [facility] [place] 2023-05-11 00:00 fluocinonide [facility] [place] 2023-05-11 00:00 fluocinonide [facility] [place] 2023-05-12 00:00 fluocinonide [facility] [place] 2023-05-19 00:00 fluocinonide [facility] [place] 2023-05-19 00:00 fluocinonide [facility] [place] 2023-05-22 00:00 fluocinonide [facility] [place] 2023-05-11 00:00 latanoprost [facility] [place] 2023-05-11 00:00 latanoprost [facility] [place] 2023-05-12 00:00 latanoprost [facility] [place] 2023-05-19 00:00 latanoprost [facility] [place] 2023-05-19 00:00 latanoprost [facility] [place] 2023-05-22 00:00 latanoprost [facility] [place] 2023-05-11 00:00 furosemide [facility] [place] 2023-05-11 00:00 furosemide [facility] [place] 2023-05-12 00:00 furosemide [facility] [place] 2023-05-19 00:00 furosemide [facility] [place] 2023-05-19 00:00 furosemide [facility] [place] 2023-05-22 00:00 furosemide [facility] [place] 2023-05-19 00:00 betamethasone dipropionate [facility] [place] 2023-05-22 00:00 betamethasone dipropionate [facility] [place] 2023-05-11 00:00 fluocinonide [facility] [place] 2023-05-11 00:00 fluocinonide [facility] [place] 2023-05-12 00:00 fluocinonide [facility] [place] 2023-05-19 00:00 fluocinonide [facility] [place] 2023-05-19 00:00 fluocinonide [facility] [place] 2023-05-22 00:00 fluocinonide [facility] [place] 2023-05-11 00:00 losartan [facility] [place] 2023-05-11 00:00 losartan [facility] [place] 2023-05-12 00:00 losartan [facility] [place] 2023-05-19 00:00 losartan [facility] [place] 2023-05-19 00:00 losartan [facility] [place] 2023-05-22 00:00 losartan [facility] [place] 2023-05-11 00:00 aspirin [facility] [place] 2023-05-11 00:00 aspirin [facility] [place] 2023-05-12 00:00 aspirin [facility] [place] 2023-05-19 00:00 aspirin [facility] [place] 2023-05-19 00:00 aspirin [facility] [place] 2023-05-22 00:00 aspirin [facility] [place] Problems date description facility 2023-05-11 00:00 Herpes zoster withou t mention of complication [facility] [place] 2023-05-11 00:00 Herpes zoster withou t mention of complication [facility] [place] 2023-05-11 00:00 Hypertensive disorder [facility] [place] 2023-05-11 00:00 Hypertensive disorder [facility] [place] 2023-05-11 [...] [facility] [place] 2023-05-12 00:00 Hypertensive disorder [facility] [place] 2023-05-12 00:00 Essential (primary) hypertensio n [facility] [place] 2023-05-19 00:00 Hypertensive disorder [facility] [place] 2023-05-19 00:00 Hypertensive disorder [facility] [place] 2023-05-19 00:00 Essential (primary) hypertensio n [facility] [place] 2023-05-19 00:00 Essential (primary) hypertensio n [facility] [place] 2023-05-22 00:00 Hypertensive disorder [facility] [place] 2023-05-22 00:00 Essential (primary) hypertensio n [facility] [place] Procedures date description facility 2023-05-11 00:00 Visit Code Hold [facility] [place] 2023-05-11 00:00 Visit Code Hold [facility] [place] 2023-05-19 00:00 Visit Code Hold [facility] [place] Social History date description facility 2023-05-11 00:00 Former smoker [facility] [place] 2023-05-11 00:00 Former smoker [facility] [place] 2023-05-19 00:00 Former smoker [facility] [place] Vital Signs date measurement value units 2023-05-11 00:00 BMI 23.18 kg/m2 2023-05-11 00:00 BP_diastolic 97 mmHg 2023-05-11 00:00 BP_systolic 157 mmHg 2023-05-11 00:00 heart_rate 68 /min 2023-05-11 00:00 height_metric 177.8 cm 2023-05-11 00:00 height_standard 70 in 2023-05-11 00:00 respiration_rate 16 /min 2023-05-11 00:00 weight_metric 73.03 kg 2023-05-11 00:00 weight_standard 161 lb 2023-05-19 00:00 BMI 23.20 kg/m2 2023-05-19 00:00 BP_diastolic 78 mmHg 2023-05-19 00:00 BP_systolic 148 mmHg 2023-05-19 00:00 heart_rate 62 /min 2023-05-19 00:00 height_metric 177.8 cm 2023-05-19 00:00 height_standard 70 in 2023-05-19 00:00 respiration_rate 15 /min 2023-05-19 00:00 temperature_metric 36.56 C 2023-05-19 00:00 temperature_standard 97.8 F 2023-05-19 00:00 weight_metric 73.09 kg 2023-05-19 00:00 weight_standard 161.13 lb
--- NOTE | 2023-07-17 14:12 | XRAY Report ---
PROCEDURE: Chest 1 View X-Ray INDICATIONS: cough TECHNIQUE: One view of the chest was acquired. COMPARISON: None. FINDINGS: Surgical changes and devices: Left chest wall pacemaker with intravenous leads. Lungs and pleura: No pleural effusions or pneumothorax. Lungs are clear. Mediastinum: Mediastinal contours appear normal. Heart size is enlarged. Bones and chest wall: No suspicious bony lesions. Overlying soft tissues appear unremarkable. IMPRESSION: No acute cardiopulmonary process. Reviewed by: Enoc Talbert on 07/17/2023 2:10 PM PDT Approved by: Enoc Talbert on 07/17/2023 2:10 PM PDT Station ID: [id number]
--- NOTE | 2023-07-17 15:08 | ED Physician Documentation ---
History of Present Illness - Stated complaint Stated Complaint: SOA,TIGHT CHEST - Chief complaint Chief Complaint: Resp - Additonal information Additional information: 82-year-old male presents emergency department for evaluation of 5 to 6 days exertional dyspnea. Occasionally notices some chest pain. He does have a history of atrial fib status post watchman. Also has a pacer in place. Does have a history of hypertension and congestive heart failure. On furosemide. Denies any leg swelling. He did see his master automotive technician Dr. Guillen in follow-up on last week. He denies that he has any new cough, fevers or congestion. Denies abdominal pain nausea or vomiting. He is concerned that he is developing pneumonia. Review of Systems Constitutional: denies: Fever Nose: reports: Reviewed and negative Throat: reports: Reviewed and negative Cardiac: reports: Chest pain / pressure Respiratory: reports: Dyspnea. denies: Cough GI: reports: Reviewed and negative : reports: Reviewed and negative Skin: reports: Reviewed and negative Musculoskeletal: reports: Reviewed and negative PD PAST MEDICAL HISTORY - Past Medical History Cardiovascular: Congestive heart failure, Hypertension, Other Respiratory: None Endocrine/Autoimmune: None GI: Hemorrhoids : None HEENT: Glaucoma Psych: None Musculoskeletal: None Derm: None - Past Surgical History Past Surgical History: Yes General: Cholecystectomy, Other Cardiovascular: Pacemaker HEENT: Tonsil/Adenoidectomy - Present Medications Home Medications: Ambulatory Orders Medication Instructions Recorded Confirmed Aspirin 81 mg PO DAILY PM 10/29/13 07/06/20 Ascorbic Acid [Vitamin C] 1,000 mg PO DAILY 08/29/17 12/30/20 Cholecalciferol (Vitamin D3) 4,000 unit PO DAILY 08/29/17 12/30/20 [Vitamin D3] Green Tea [place] Extract [Green Tea 1 cap PO DAILY 08/29/17 12/30/20 Extract] Latanoprost 0.005% Ophth Drops 1 drops EACHEYE QPM 08/29/17 12/30/20 [Xalatan Ophth Drops] Washta-3S/Dha/Epa/Fish Oil [Fish 1 each PO DAILY 08/29/17 12/30/20 Oil Washta-3 Softgel] Isosorbide Mononitrate ER [Imdur] 60 mg PO DAILY #10 tablet 09/10/17 12/30/20 Furosemide [Lasix] 40 mg PO DAILY #30 tablet 04/06/20 12/30/20 Losartan Potassium 25 mg PO DAILY 07/06/20 12/30/20 Apixaban [Eliquis] 5 mg PO BID 12/30/20 12/30/20 - Allergies Allergies/Adverse Reactions: Allergies Allergy/AdvReac Type Severity Reaction Status Date / Time cephalexin monohydrate * Allergy Intermediate Hallucinati Verified 07/17/23 13:40 [From Keflex] ons levofloxacin [From Levaquin] Allergy Intermediate Rash Verified 07/17/23 13:40 codeine Allergy Edema with Verified 07/17/23 13:40 SOA guaifenesin Allergy Edema with Verified 07/17/23 13:40 [From Guaiatussin AC] SOA - Social History Does the pt smoke?: No Smoking Status: Never smoker Does the pt drink ETOH?: No Does the pt have substance abuse?: No - Immunizations Immunizations are current?: Yes - POLST Patient has POLST: No PD ED PE NORMAL - General General: Alert and oriented X 3, No acute distress, Well developed/nourished - HEENT HEENT: Atraumatic, Moist mucous membranes - Neck Neck: Supple, no meningeal sign - Cardiac Cardiac: RRR, Strong equal pulses. No: No murmur - Respiratory Respiratory: No respiratory distress, Clear bilaterally - Abdomen Abdomen: Normal bowel sounds, Soft, Non tender, Non distended - Male Male : Deferred - Back Back: No CVA TTP - Derm Derm: Normal color, Warm and dry - Extremities Extremities: No deformity, No edema - Neuro Neuro: Alert and oriented X 3 Results - Vitals Vitals: Vital Signs - 24 hr 07/17/23 07/17/23 07/17/23 13:37 13:40 15:15 Temperature 36.7 C 36.7 C Heart Rate 71 71 Respiratory 15 15 Rate Blood Pressure 154/80 H 154/80 H 158/87 H O2 Saturation 98 98 07/17/23 07/17/23 15:30 16:00 Temperature Heart Rate 59 L 62 Respiratory 16 11 L Rate Blood Pressure 157/87 H 161/83 H O2 Saturation 97 98 Oxygen O2 Source Room air - EKG (time done) 1508 EKG releavant findings:: EKG personally interpreted by author of this note. Relevant findings are: Rhythm: Other (a fib with paced rhythm. RBBB) Intervals: RBBB Compare to prior EKG: Unchanged from prior EKG Computer interpretation: Agree with computer - Labs Labs: Laboratory Tests 07/17/23 07/17/23 07/17/23 15:20 15:20 15:20 WBC 6.5 RBC 4.07 L Hgb 12.3 L Hct 37.0 L MCV 90.9 MCH 30.2 MCHC 33.2 RDW 13.8 Plt Count 168 MPV 8.7 Neut # (Auto) 4.8 Lymph # (Auto) 0.9 L Villalba # (Auto) 0.7 Eos # (Auto) 0.1 Baso # (Auto) 0.1 Absolute Nucleated RBC 0.00 Nucleated RBC % 0.0 Sodium 137 Potassium 4.0 Chloride 100 L Carbon Dioxide 31 Anion Gap 6.0 BUN 12 Creatinine 0.8 Estimated GFR (MDRD) 93 Glucose 105 H Calcium 9.4 Total Bilirubin 1.2 H AST 21 ALT 13 Alkaline Phosphatase 60 Troponin I High Sens 20.2 H* B-Natriuretic Peptide 499 H Total Protein 6.8 Albumin 4.5 Globulin 2.3 Albumin/Globulin Ratio 2.0 Lipase 11 - Rads (name of study) cxr Relevant Findings:: Final report received (No acute cardiopulmonary process) PD Medical Decision Making - ED course Complexity details: reviewed results, re-evaluated patient, d/w patient ED course: 82-year-old male presents emergency department for evaluation of several days minor exertional dyspnea. Had 1 brief episode of chest pain. No falls or trauma. No fevers. No cough. Does have a history of congestive heart failure, A-fib status post watchman as well as a pacer. He is not anticoagulated. Presentation emergency department he is alert and very well-appearing. Cardiopulmonary auscultation revealed no worrisome findings such as crackles rhonchi or wheeze. His vital signs here in the emergency department showed no findings of hypoxia. A chest x-ray did not show pneumonia, pleural effusion, cardiomegaly or pn eumothorax. His EKG shows a paced rhythm essentially unchanged from previous. CBC, electrolytes troponin and BNP were evaluated. No anemia. His BNP today is 490 which is well below what it has been historically in the 800s. Troponin is 20 which is unchanged from previous values of 20 and 22. This likely is reflected in some heart failure. At this time patient does not appear to have symptoms consistent with pneumonia, pneumothorax, pleural effusion, congestive heart failure, acute coronary syndrome or COPD exacerbation. He is advised to monitor his symptoms closely over the next several days and follow close with his PCP and master automotive technician. The usual emergent return precautions were discussed for worsening symptoms. Departure - Departure Disposition: 01 Home, Self Care Clinical Impression: Shortness of breath Condition: Stable Instructions: ED Dyspnea Shortness of Breath Comments: When you came to the emergency department because for several days you have been complaining of shortness of breath especially with walking. Your chest x-ray today did not show any findings of pneumonia, an enlarged heart or pleural effusion. Your labs were all essentially unchanged. It does not appear that you are having a heart failure exacerbation or a heart attack. Its not clear to us at this time what the cause of your shortness of air is though your vital signs in the emergency department and your exam were all relatively reassuring. Lets have you pay attention to the symptoms for the next several days. If you develop fevers, have cough, develop sudden severe chest pain or have severe shortness of air then please return immediately to the ER. I would continue to take the furosemide of 40 mg daily. I would discuss with your master automotive technician before stopping this medication in the future. Please discuss this ED visit with your primary care doctor as well as your master automotive technician. Forms: PCP List
[2023-07-17 15:27] LABS: BASOPHILS # (AUTO) 0.1 10^3/uL (0.0-0.1); BASOPHILS % (AUTO) 0.8 %; EOSINOPHILS # (AUTO) 0.1 10^3/uL (0.0-0.7); HGB - HEMOGLOBIN 12.3 g/dL (14.0-18.0); LYMPHOCYTES # (AUTO) 0.9 10^3/uL (1.5-3.5); LYMPHOCYTES % (AUTO) 13.1 %; MEAN CORPUSCULAR HEMOGLOBIN 30.2 pg (27.0-31.0); MEAN CORPUSCULAR HGB CONC 33.2 g/dL (32.0-36.0); MEAN CORPUSCULAR VOLUME 90.9 fL (80.0-94.0); MEAN PLATELET VOLUME 8.7 fL (7.4-11.4); MONOCYTES # (AUTO) 0.7 10^3/uL (0.0-1.0); MONOCYTES % (AUTO) 10.5 %; NEUTROPHILS # (AUTO) 4.8 10^3/uL (1.5-6.6); NEUTROPHILS % (AUTO) 73.1 %; PLT - PLATELET COUNT 168 10^3/uL (130-450); RED BLOOD COUNT 4.07 10^6/uL (4.70-6.10); RED CELL DISTRIBUTION WIDTH 13.8 % (12.0-15.0); WHITE BLOOD COUNT 6.5 x10^3/uL (4.8-10.8)
[2023-07-17 15:39] LABS: ALBUMIN 4.5 g/dL (3.2-5.5); BILIRUBIN,TOTAL 1.2 mg/dL (0.2-1.0); CALCIUM 9.4 mg/dL (8.5-10.3); CREATININE 0.8 mg/dL (0.6-1.3); TOTAL PROTEIN 6.8 g/dL (6.4-8.9)
[2023-07-17 16:03] LABS: TROPONIN I HIGH SENSITIVITY 20.2 ng/L (2.3-19.7)
[2023-07-17 16:16] VITALS: BP 161/83
== END 2023-07-17 16:59 | disposition home or self-care (01) ==
LOC: ED 13:30
DX: R06.09 Other forms of dyspnea (principal)
CPT/HCPCS: 36415; 80053; 83690; 83880; 84484; 85025; 93005; 99283; 99284

== ENCOUNTER 2023-07-24 08:00 | Outpatient (CLI) | payer MEDICARE, OTHER ==
--- NOTE | 2023-07-24 14:40 | XRAY Report ---
PROCEDURE: Chest 2 View X-Ray INDICATIONS: DYSPNEA UPON EXERTION TECHNIQUE: 2 views of the chest were acquired. COMPARISON: Single view the chest dated 07/17/2023. Single view the chest dated 05/14/2023. FINDINGS: Surgical changes and devices: Single lead cardiac pacer is unchanged. Lungs and pleura: Consolidative radiopacities are likely present at the bilateral lung bases. On the right this is a new finding, on the left this is increased from the prior study. There is a small le ft pleural effusion. No pneumothorax. Mediastinum: Mediastinal contours appear normal. Heart size is enlarged, as before. Bones and chest wall: No suspicious bony lesions. Overlying soft tissues appear unremarkable. IMPRESSION: 1. Bibasilar pulmonary radiopacities. Differential considerations include atelectasis, aspiration, an d infection. 2. Cardiomegaly and left effusion suspicious for congestive failure. Reviewed by: Monica Tirado MD on 07/24/2023 2:38 PM PDT Approved by: Monica Tirado MD on 07/24/2023 2:38 PM PDT Station ID: [id number]
[2023-07-24 20:13] LABS: HCT - HEMATOCRIT 36.5 % (42.0-52.0); HGB - HEMOGLOBIN 12.2 g/dL (14.0-18.0); MEAN CORPUSCULAR HGB CONC 33.4 g/dL (32.0-36.0); MEAN CORPUSCULAR VOLUME 89.7 fL (80.0-94.0); RED BLOOD COUNT 4.07 10^6/uL (4.70-6.10); RED CELL DISTRIBUTION WIDTH 13.5 % (12.0-15.0)
[2023-07-24 20:27] LABS: CALCIUM 9.4 mg/dL (8.5-10.3); CREATININE 0.8 mg/dL (0.6-1.3)
== END 2023-07-24 23:59 | disposition home or self-care (01) ==
LOC: LAB.S 08:00
PROVIDERS: ATTEND Physician Assistant
DX: R06.09 Other forms of dyspnea (principal); I50.9 Heart failure, unspecified; R91.8 Other nonspecific abnormal finding of lung field; J90 Pleural effusion, not elsewhere classified; I51.7 Cardiomegaly; Z95.0 Presence of cardiac pacemaker
CPT/HCPCS: 36415; 80048; 83880; 85027

== ENCOUNTER 2023-09-12 15:21 | Outpatient (CLI) | payer MEDICARE, OTHER | END 2023-09-12 15:22 | disposition home or self-care (01) | LOC: DI 15:21 | PROVIDERS: ATTEND Student in an Organized Health Care Education/Training Program | DX: I50.9 Heart failure, unspecified (principal); I08.0 Rheumatic disorders of both mitral and aortic valves; I27.20 Pulmonary hypertension, unspecified; Q21.11 Secundum atrial septal defect; I77.810 Thoracic aortic ectasia; I87.8 Other specified disorders of veins | CPT/HCPCS: 93306 ==

== ENCOUNTER 2023-09-18 08:00 | Outpatient (CLI) | payer MEDICARE, OTHER | END 2023-09-18 23:59 | disposition home or self-care (01) | LOC: LAB.S 08:00 | PROVIDERS: ATTEND Physician Assistant | DX: J20.9 Acute bronchitis, unspecified (principal) ==

== ENCOUNTER 2023-09-18 08:00 | Outpatient (CLI) | payer MEDICARE, OTHER ==
--- NOTE | 2023-09-19 13:58 | XRAY Report ---
PROCEDURE: Chest 2 View X-Ray INDICATIONS: ACUTE BRONCHITIS TECHNIQUE: 2 views of the chest were acquired. COMPARISON: Chest x-ray 07/24/2023 FINDINGS: Surgical changes and devices: Pacemaker, cholecystectomy clips Lungs and pleura: Trace blunting of the costophrenic angles. No consolidations. Mediastinum: Mediastinal contours appear normal. Heart size is enlarged. Bones and chest wall: No suspicious bony lesions. Overlying soft tissues appear unremarkable. IMPRESSION: Cardiomegaly with trace costophrenic angle blunting related to minimal effusions versus scarring. Reviewed by: Aneta Pagan MD on 09/19/2023 1:57 PM PST Approved by: Aneta Pagan MD on 09/19/2023 1:57 PM [facility] Station ID: [id number]
== END 2023-09-18 23:59 | disposition home or self-care (01) ==
LOC: DI.S 08:00
PROVIDERS: ATTEND Physician Assistant
DX: J20.9 Acute bronchitis, unspecified (principal); I51.7 Cardiomegaly; J90 Pleural effusion, not elsewhere classified

== ENCOUNTER 2023-10-04 08:00 | Outpatient (CLI) | payer MEDICARE, OTHER ==
--- NOTE | 2023-10-05 08:18 | XRAY Report ---
PROCEDURE: Chest 2V INDICATIONS: BRONCHITIS TECHNIQUE: 2 views of the chest were acquired. COMPARISON: Chest x-ray 09/18/2023. FINDINGS: Surgical changes and devices: Left chest wall pacemaker Lungs and pleura: No pleural effusions or pneumothorax. Lungs are clear. Mediastinum: Mediastinal contours appear normal. Heart size is enlarged, stable. Bones and chest wall: No suspicious bony lesions. Overlying soft tissues appear unremarkable. IMPRESSION: No acute cardiopulmonary process. Stable cardiomegaly. Reviewed by: Isidro Gtz MD on 10/05/2023 8:17 AM PST Approved by: Isidro Gtz MD on 10/05/2023 8:17 AM PST Station ID: [id number]
== END 2023-10-04 23:59 | disposition home or self-care (01) ==
LOC: DI.S 08:00
PROVIDERS: ATTEND Registered Nurse
DX: J20.9 Acute bronchitis, unspecified (principal); I51.7 Cardiomegaly